=== PATIENT | male | born 1945 | race Caucasian/White ===

== ENCOUNTER 2023-09-24 09:41 | Emergency (ER) | payer MEDICARE, SELFPAY ==
[2023-09-24 09:45] VITALS: BP 139/92
[2023-09-24 10:27] LABS: % Basophils 0.4 % (0-2); % Eosinophils 0.6 % (0-6); % Immature Granulocytes 0.6 % (0-0.5); % Lymphocytes 50.6 % (20.5-51.1); % Monocytes 20.3 % (1.7-9.3); % Neutrophils 27.5 % (42.2-75.2); Absolute Lymphocytes 2.6 10^3/uL (1.2-3.4); Absolute Neutrophils 1.4 10^3/uL (1.4-6.5); Hematocrit 36.8 % (39.0-52.0); Hemoglobin 13.2 g/dL (13.0-18.0); Mean Corp Hgb Conc. 35.9 g/dL (33.0-37.0); Mean Corpuscular Hgb 35.7 pg (27.0-31.0); Mean Corpuscular Volume 99.5 fL (80.0-94.0); Mean Platelet Volume 9.8 fL (7.4-10.4); Nucleated Red Blood Cells % 0 % (-); Platelet Count 179 10^3/uL (130-400); Red Cell Dist. Width 15.4 % (11.5-14.5); White Blood Cell Count 5.1 10^3/uL (4.8-10.8)
[2023-09-24 10:38] LABS: ALT (SGPT) 21 U/L (0-50); AST (SGOT) 48 U/L (17-59); Albumin 3.8 g/dl (3.5-5.0); Alkaline Phosphatase 122 U/L (38-126); Blood Urea Nitrogen 15 mg/dl (9-20); Calcium 8.8 mg/dl (8.4-10.2); Carbon Dioxide 24 mmol/L (22-30); Chloride 106 mmol/L (98-107); Glucose 120 mg/dl (70-99); Potassium 4.8 mmol/L (3.5-5.1); Sodium 138 mmol/L (135-145); Total Bilirubin 0.9 mg/dl (0.2-1.3); Total Protein 7.5 g/dl (6.3-8.2); eGFR > 60.00
[2023-09-24 11:08] LABS: Urine Albumin Negative (Neg - Trace); Urine Bilirubin Negative (Negative); Urine Character Clear (Clear); Urine Color Yellow; Urine Glucose Negative (Negative); Urine Ketone Negative (Negative); Urine Leukocyte 2+ (Negative); Urine Nitrite Negative (Negative); Urine Occult Blood 4+ (Negative); Urine Specific Gravity 1.025 (<1.030); Urine Urobilinogen Negative (Neg - 1+)
[2023-09-24 12:03] VITALS: BMI 30.2
[2023-09-24 12:09] VITALS: BP 121/80
--- NOTE | 2023-09-24 12:12 | ED.GENMED ---
Addendum entered and electronically signed by Annalisa Rosa PA-C 09/28/23 09:04:
left message
pt's finalized culture is actually enterococcus; resistant to levaquin
may need hospitalizatino for gent or linezolid;
Addendum entered and electronically signed by Edu Tillman PA-C 09/26/23 07:28:
Urine culture shows greater than 100,000 colony-forming units of E. coli. Patient has several allergies. Will prescribe Levaquin. Spoke with patient regarding this.
Original Note:
History of Present Illness
General
Chief Complaint: Male Genito-Urinary Symptoms
Time Seen by Provider: 09/24/23 11:32
Travel History
Have you had any contact with someone who has COVID-19?: No
Do you have any symptoms of coronavirus? Fever > 100 degrees, chills, cough, shortness of breath, sore throat, loss of taste or smell, muscle aches, or headache?: No
History of Present Illness
History of Present Illness:
78-year-old male with history of A-fib on Xarelto presents to the emergency department for evaluation of weak urinary stream for the past 2 to 3 days. Upon arrival to the emergency department he feels that he can void much more effectively. He was
recent admitted to this hospital for hematuria and was diagnosed with a suspected bladder mass, is scheduled for a cystoscopy in 5 days with his urologist. Denies any dysuria or abdominal pain at this point. Hematuria has resolved
Past History
Past History
ED Past Medical History: Arrthythmia, Cancer and Hypercholesterolemia
ED Past Surgical History: Cardiac (Ablation), Cholecystectomy and Orthopedic
Social History
Tobacco: Non-smoker
Alcohol: Occasional
Drug: None
Personal:
Living: with family
Review of Systems
Review of Systems
Allergies reviewed?: Yes
All Other Systems: ROS reviewed and negative except as documented in HPI and ROS
Phy Exam
Physical Exam
Physical Exam:
GEN: Well appearing, NAD, WDWN
HEENT: Oral mucosa moist, no scleral icterus
Cardiac: Regular rate
Lung: No respiratory distress, no tachypnea
MSK: No gross deformity or injuries
Skin: Good color, no pallor or jaundice, no rashes
Neuro: AO x3, moves all extremities freely
Psych: Calm, cooperative
Course
Orders/Labs/Results
Orders:
Orders
09/24/23 10:02
CMP [Comprehensive Metabolic Panel] Urgent
Complete Blood Count/With Diff Urgent
Urinalysis Reflex To Culture Urgent
Date Specimen was Collected: 09/24/23
Time Specimen was Collected: 09:57
Urine Microscopic Reflex Cult Urgent
Urine Culture Urgent
MISAEL Source: U
Specimen Description:
Date Specimen was Collected: 09/24/23
Time Specimen was Collected: 09:57
Abnormal Lab Results
09/24/23
10:02
RBC 3.70 L 10^6/uL
(4.70-6.10)
Hct 36.8 L %
(39.0-52.0)
MCV 99.5 H fL
(80.0-94.0)
MCH 35.7 H pg
(27.0-31.0)
RDW 15.4 H %
(11.5-14.5)
Absolute Monos (auto) 1.0 H 10^3/uL
(0.1-0.6)
Immature Gran % 0.6 H %
(0-0.5)
Neutrophils % 27.5 L %
(42.2-75.2)
Monocytes % 20.3 H %
(1.7-9.3)
Glucose 120 H mg/dl
(70-99)
Ur Occult Blood Reflex 4+ A
(Negative)
Leukocyte Esterase Rfl 2+ A
(Negative)
Urine RBC 11-15 A /HPF
(0-2)
Urine WBC (Reflex) 26-30 A /HPF
(0-5)
Urine Bacteria (Reflex) Many A
(Negative)
09/24/23 10:02
09/24/23 10:02
Vital Signs
Initial and Last Documented VS:
Initial Vital Signs
Temp Pulse Resp BP Pulse Ox
98.3 F 92 18 139/92 97
09/24/23 09:45 09/24/23 09:45 09/24/23 09:45 09/24/23 09:45 09/24/23 09:45
Last Documented Vital Signs
Temp Pulse Resp BP Pulse Ox
98.3 F 80 18 121/80 94
09/24/23 09:45 09/24/23 12:09 09/24/23 12:09 09/24/23 12:09 09/24/23 12:09
MDM/Problems Addressed
MDM/Problems Addressed:
Patient voiding better than previously however still noted to have a postvoid residual of approximate 200 250 cc. Patient declined Castro catheter or straight cath at this time, he states that he is comfortable performing straight cath as needed for
the next several days until his cystoscopy. His urinalysis has large leukocytes and bacteria, he was treated for a urinary tract infection while hospitalized however his culture was negative for UTI. Given this would opt to hold off on antibiotics
at this time given the similarities of the urinalysis, this is likely on the basis of his bladder mass however if urine culture is positive would prefer to initiate antibiotics given his upcoming cystoscopy
*Critical Care Note
Total Time (30-74mins, 75-104mins- exclusive of procedures): Not Applicable
ED Attending Note
-
Portions of this chart may have been created with voice recognition software.� Occasional wrong word or��sound alike� substitutions may have occurred due to the inherent limitations of voice recognition software.
Discharge Plan
Departure
Patient Disposition: Home (Routine Discharge)
Date of Disposition: 09/24/23
Time of Disposition: 12:12
Patient with high blood pressure during this ER visit?: No
Discharge Problem:
Acute urinary retention
Instructions: Urinary Retention (DC)
Prescriptions:
New
(DME) catheter 16 Fr misc
See Rx Instructions .Route Qty: 10 0RF
Rx Instructions:
As directed
Surgilube Gel
1 ea topical DIRECTED Qty: 100 0RF
Rx Instructions:
one 5g packet with straight catheter as needed
No Action
loperamide 2 mg Capsule
2 mg PO BIDPRN PRN (Reason: diarrhea)
acetaminophen [Tylenol Extra Strength] 500 mg Tablet
1,000 mg PO DAILYPRN PRN (Reason: mild pain)
lidocaine-prilocaine 2.5-2.5 % Cream
1 applic TOPICAL .Q OTHER MONDAY
Patient Comments:
09/11/2023, applied to port during chemo infusion every other Monday.
ferrous sulfate [iron] 325 mg (65 mg iron) Tablet
325 mg PO DAILY
docusate sodium [Stool Softener] 100 mg Capsule
100 mg PO BID PRN (Reason: constipation)
cyanocobalamin (vitamin B-12) 1,000 mcg Tablet, Sublingual
1,000 mcg SUBLINGUAL DAILY
mirtazapine 15 mg Tablet
15 mg PO HS
fluticasone propionate 50 mcg/actuation [place],Suspension
2 spray INTRANASAL DAILY
Xarelto 20 mg Tablet
20 mg PO QPM
magnesium
1 tab PO DAILY
simethicone 80 mg Tablet,Chewable
80 mg PO DAILY PRN (Reason: gas)
omeprazole 20 mg Tablet,Delayed Release (Dr/Ec)
20 mg PO BID
miconazole nitrate [Miconazorb AF] 2 % Powder
1 applic topical BID Qty: 85 0RF
cefdinir 300 mg capsule
300 mg PO BID 5 Days Qty: 10 0RF
Referrals:
Baljeet Trotter MD [Active] -
Interventions
Interventions:
*Risk Screen - Suicide Last Done: 09/24/23 09:45
*General Assessment Last Done: 09/24/23 12:00
*Neglect/Abuse Screening Last Done: 09/24/23 09:45
ED- Fall Risk Assessment Last Done: 09/24/23 12:02
*ED COVID-19 Vaccine History Last Done: 09/24/23 09:45
*Nursing Disposition Last Done: 09/24/23 12:32
ED-Male Genitourinary Assessment Last Done: 09/24/23 12:01
Discharge Date and Time
Discharge Date/Time: 09/24/23 12:33
[2023-09-24 13:05] LABS: Urine Bacteria Many (Negative); Urine White Cell 26-30 /HPF (0-5)
--- NOTE | 2023-09-28 15:34 | ED.ADDNOTE ---
ED Addendum
ED Addendum
ED Addendum Note:
pt called back and he is feeling well
all symptoms resolved
i texted dr. perez and he will take care of additional treatment ada quarles is seeing him in the office tomorrow.
== END 2023-09-24 12:33 | disposition home or self-care (01) ==
LOC: EMR 09:41
PROVIDERS: EMERGENCY PHYSICIAN Emergency Medicine; FAMILY PHYSICIAN Internal Medicine
DX: R33.9 Retention of urine, unspecified (principal); E78.00 Pure hypercholesterolemia, unspecified; I48.91 Unspecified atrial fibrillation; Z79.01 Long term (current) use of anticoagulants; Z90.49 Acquired absence of other specified parts of digestive tract
CPT/HCPCS: 99283; 80053; 81003; 81015; 85025; 87077; 87086; 87186

== ENCOUNTER → 2023-10-09 08:31 | Outpatient (REF) | payer MEDICARE, SELFPAY ==
[2023-10-09 09:39] LABS: % Basophils 0.4 % (0-2); % Eosinophils 0.8 % (0-6); % Immature Granulocytes 1.6 % (0-0.5); % Monocytes 8.7 % (1.7-9.3); % Neutrophils 61.5 % (42.2-75.2); Absolute Basophils 0.1 10^3/uL (0-0.2); Absolute Eosinophils 0.1 10^3/uL (0-0.7); Absolute Immature Granulocytes 0.2 10^3/uL (0-0.05); Absolute Lymphocytes 3.5 10^3/uL (1.2-3.4); Absolute Monocytes 1.1 10^3/uL (0.1-0.6); Hematocrit 32.2 % (39.0-52.0); Mean Corp Hgb Conc. 34.2 g/dL (33.0-37.0); Mean Corpuscular Hgb 35.8 pg (27.0-31.0); Mean Corpuscular Volume 104.9 fL (80.0-94.0); Nucleated Red Blood Cells % 0.5 % (-); Red Blood Cell Count 3.07 10^6/uL (4.70-6.10); Red Cell Dist. Width 17.5 % (11.5-14.5)
[2023-10-09 09:56] LABS: ALT (SGPT) 15 U/L (0-50); AST (SGOT) 27 U/L (17-59); Albumin 3.1 g/dl (3.5-5.0); Alkaline Phosphatase 135 U/L (38-126); Blood Urea Nitrogen 21 mg/dl (9-20); Calcium 8.7 mg/dl (8.4-10.2); Carbon Dioxide 26 mmol/L (22-30); Chloride 102 mmol/L (98-107); Glucose 137 mg/dl (70-99); Potassium 4.1 mmol/L (3.5-5.1); Sodium 137 mmol/L (135-145); Total Bilirubin 0.6 mg/dl (0.2-1.3); eGFR > 60.00
[2023-10-09 10:37] LABS: Mean Platelet Volume 12.3 fL (7.4-10.4); Platelet Count 54 10^3/uL (130-400)
== END ==
LOC: HWLAB 08:31
PROVIDERS: ATTENDING PHYSICIAN Internal Medicine Hematology & Oncology; FAMILY PHYSICIAN Internal Medicine; REFERRING PHYSICIAN Specialist
DX: N39.0 Urinary tract infection, site not specified (principal); R71.8 Other abnormality of red blood cells; D69.6 Thrombocytopenia, unspecified; C18.2 Malignant neoplasm of ascending colon
CPT/HCPCS: 36415; 80053; 85025; 87086

== ENCOUNTER → 2023-10-16 08:39 | Outpatient (REF) | payer MEDICARE, SELFPAY ==
[2023-10-16 13:28] LABS: % Basophils 0.3 % (0-2); % Eosinophils 1.8 % (0-6); % Immature Granulocytes 0.5 % (0-0.5); % Lymphocytes 19.1 % (20.5-51.1); % Monocytes 8.6 % (1.7-9.3); % Neutrophils 69.7 % (42.2-75.2); Absolute Eosinophils 0.3 10^3/uL (0-0.7); Absolute Immature Granulocytes 0.1 10^3/uL (0-0.05); Absolute Lymphocytes 2.8 10^3/uL (1.2-3.4); Absolute Monocytes 1.3 10^3/uL (0.1-0.6); Absolute Neutrophils 10.2 10^3/uL (1.4-6.5); Hematocrit 34.5 % (39.0-52.0); Hemoglobin 11.6 g/dL (13.0-18.0); Mean Corp Hgb Conc. 33.6 g/dL (33.0-37.0); Mean Corpuscular Hgb 36.4 pg (27.0-31.0); Mean Corpuscular Volume 108.2 fL (80.0-94.0); Mean Platelet Volume 12.1 fL (7.4-10.4); Nucleated Red Blood Cells % 0 % (-); Platelet Count 114 10^3/uL (130-400); Red Blood Cell Count 3.19 10^6/uL (4.70-6.10); Red Cell Dist. Width 19.9 % (11.5-14.5); White Blood Cell Count 14.7 10^3/uL (4.8-10.8)
[2023-10-16 13:34] LABS: ALT (SGPT) 11 U/L (0-50); AST (SGOT) 22 U/L (17-59); Albumin 3.3 g/dl (3.5-5.0); Alkaline Phosphatase 138 U/L (38-126); Blood Urea Nitrogen 16 mg/dl (9-20); Calcium 8.9 mg/dl (8.4-10.2); Carbon Dioxide 29 mmol/L (22-30); Chloride 102 mmol/L (98-107); Glucose 108 mg/dl (70-99); Potassium 4.1 mmol/L (3.5-5.1); Sodium 138 mmol/L (135-145); Total Bilirubin 0.8 mg/dl (0.2-1.3); Total Protein 6.4 g/dl (6.3-8.2); eGFR > 60.00
== END ==
LOC: HWLAB 08:39
PROVIDERS: ATTENDING PHYSICIAN Internal Medicine Hematology & Oncology; FAMILY PHYSICIAN Internal Medicine
DX: R71.8 Other abnormality of red blood cells (principal); D69.6 Thrombocytopenia, unspecified; C18.2 Malignant neoplasm of ascending colon
CPT/HCPCS: 36415; 80053; 85025

== ENCOUNTER → 2023-10-30 08:25 | Outpatient (REF) | payer MEDICARE, SELFPAY ==
[2023-10-30 10:03] LABS: % Basophils 0.3 % (0-2); % Eosinophils 1.5 % (0-6); % Immature Granulocytes 0.6 % (0-0.5); % Lymphocytes 16.2 % (20.5-51.1); % Monocytes 7.7 % (1.7-9.3); % Neutrophils 73.7 % (42.2-75.2); Absolute Basophils 0.1 10^3/uL (0-0.2); Absolute Eosinophils 0.2 10^3/uL (0-0.7); Absolute Immature Granulocytes 0.1 10^3/uL (0-0.05); Absolute Lymphocytes 2.5 10^3/uL (1.2-3.4); Absolute Monocytes 1.2 10^3/uL (0.1-0.6); Absolute Neutrophils 11.4 10^3/uL (1.4-6.5); Hematocrit 35.3 % (39.0-52.0); Hemoglobin 11.5 g/dL (13.0-18.0); Mean Corp Hgb Conc. 32.6 g/dL (33.0-37.0); Mean Corpuscular Hgb 35.1 pg (27.0-31.0); Mean Corpuscular Volume 107.6 fL (80.0-94.0); Nucleated Red Blood Cells % 0 % (-); Platelet Count 85 10^3/uL (130-400); Red Blood Cell Count 3.28 10^6/uL (4.70-6.10); Red Cell Dist. Width 19.5 % (11.5-14.5); White Blood Cell Count 15.5 10^3/uL (4.8-10.8)
[2023-10-30 10:27] LABS: ALT (SGPT) 14 U/L (0-50); AST (SGOT) 24 U/L (17-59); Albumin 3.7 g/dl (3.5-5.0); Alkaline Phosphatase 174 U/L (38-126); Blood Urea Nitrogen 19 mg/dl (9-20); Calcium 8.5 mg/dl (8.4-10.2); Carbon Dioxide 23 mmol/L (22-30); Chloride 108 mmol/L (98-107); Glucose 107 mg/dl (70-99); Potassium 4.1 mmol/L (3.5-5.1); Sodium 137 mmol/L (135-145); Total Bilirubin 0.7 mg/dl (0.2-1.3); Total Protein 6.6 g/dl (6.3-8.2); eGFR > 60.00
== END ==
LOC: HWLAB 08:25
PROVIDERS: ATTENDING PHYSICIAN Internal Medicine Hematology & Oncology; FAMILY PHYSICIAN Internal Medicine
DX: R71.8 Other abnormality of red blood cells (principal); D69.6 Thrombocytopenia, unspecified; C18.2 Malignant neoplasm of ascending colon
CPT/HCPCS: 36415; 80053; 85025

== ENCOUNTER → 2023-11-13 08:30 | Outpatient (REF) | payer MEDICARE, SELFPAY ==
[2023-11-13 12:31] LABS: % Basophils 0.6 % (0-2); % Eosinophils 2.1 % (0-6); % Immature Granulocytes 0.8 % (0-0.5); % Lymphocytes 25.2 % (20.5-51.1); % Monocytes 8.4 % (1.7-9.3); % Neutrophils 62.9 % (42.2-75.2); Absolute Basophils 0.1 10^3/uL (0-0.2); Absolute Eosinophils 0.3 10^3/uL (0-0.7); Absolute Immature Granulocytes 0.1 10^3/uL (0-0.05); Absolute Lymphocytes 3.2 10^3/uL (1.2-3.4); Absolute Monocytes 1.1 10^3/uL (0.1-0.6); Absolute Neutrophils 7.9 10^3/uL (1.4-6.5); Hematocrit 37.2 % (39.0-52.0); Hemoglobin 11.9 g/dL (13.0-18.0); Mean Corpuscular Hgb 35.6 pg (27.0-31.0); Mean Corpuscular Volume 111.4 fL (80.0-94.0); Nucleated Red Blood Cells % 0 % (-); Red Blood Cell Count 3.34 10^6/uL (4.70-6.10); Red Cell Dist. Width 17.4 % (11.5-14.5); White Blood Cell Count 12.6 10^3/uL (4.8-10.8)
[2023-11-13 13:04] LABS: ALT (SGPT) 16 U/L (0-50); AST (SGOT) 24 U/L (17-59); Albumin 3.7 g/dl (3.5-5.0); Alkaline Phosphatase 165 U/L (38-126); Blood Urea Nitrogen 19 mg/dl (9-20); Calcium 8.8 mg/dl (8.4-10.2); Carbon Dioxide 27 mmol/L (22-30); Chloride 102 mmol/L (98-107); Glucose 104 mg/dl (70-99); Potassium 4.2 mmol/L (3.5-5.1); Sodium 138 mmol/L (135-145); Total Bilirubin 0.4 mg/dl (0.2-1.3); Total Protein 6.6 g/dl (6.3-8.2); eGFR > 60.00
[2023-11-13 13:34] LABS: Mean Platelet Volume 11.1 fL (7.4-10.4); Platelet Count 96 10^3/uL (130-400)
== END ==
LOC: HWLAB 08:30
PROVIDERS: ATTENDING PHYSICIAN Internal Medicine Hematology & Oncology; FAMILY PHYSICIAN Internal Medicine
DX: R71.8 Other abnormality of red blood cells (principal); D69.6 Thrombocytopenia, unspecified; C18.2 Malignant neoplasm of ascending colon
CPT/HCPCS: 36415; 80053; 85025

== ENCOUNTER → 2023-11-21 08:43 | Outpatient (REF) | payer MEDICARE, SELFPAY | LOC: HWRAD 08:43 | PROVIDERS: ATTENDING PHYSICIAN Internal Medicine Hematology & Oncology; FAMILY PHYSICIAN Internal Medicine | DX: R71.8 Other abnormality of red blood cells (principal); D69.6 Thrombocytopenia, unspecified; C18.2 Malignant neoplasm of ascending colon | CPT/HCPCS: 71260; 74177; Q9967 ==

== ENCOUNTER → 2023-11-27 08:40 | Outpatient (REF) | payer MEDICARE, SELFPAY ==
[2023-11-27 12:58] LABS: % Basophils 0.6 % (0-2); % Eosinophils 1.5 % (0-6); % Immature Granulocytes 1.2 % (0-0.5); % Lymphocytes 18.4 % (20.5-51.1); % Neutrophils 70.3 % (42.2-75.2); Absolute Basophils 0.1 10^3/uL (0-0.2); Absolute Eosinophils 0.2 10^3/uL (0-0.7); Absolute Immature Granulocytes 0.2 10^3/uL (0-0.05); Absolute Lymphocytes 2.5 10^3/uL (1.2-3.4); Absolute Monocytes 1.1 10^3/uL (0.1-0.6); Absolute Neutrophils 9.4 10^3/uL (1.4-6.5); Hematocrit 35.9 % (39.0-52.0); Hemoglobin 11.6 g/dL (13.0-18.0); Mean Corp Hgb Conc. 32.3 g/dL (33.0-37.0); Mean Corpuscular Hgb 35.9 pg (27.0-31.0); Mean Corpuscular Volume 111.1 fL (80.0-94.0); Mean Platelet Volume 11.1 fL (7.4-10.4); Nucleated Red Blood Cells % 0 % (-); Platelet Count 75 10^3/uL (130-400); Red Blood Cell Count 3.23 10^6/uL (4.70-6.10); Red Cell Dist. Width 16.2 % (11.5-14.5); White Blood Cell Count 13.3 10^3/uL (4.8-10.8)
[2023-11-27 13:46] LABS: ALT (SGPT) 18 U/L (0-50); AST (SGOT) 25 U/L (17-59); Albumin 3.7 g/dl (3.5-5.0); Alkaline Phosphatase 174 U/L (38-126); Blood Urea Nitrogen 16 mg/dl (9-20); Calcium 9.2 mg/dl (8.4-10.2); Carbon Dioxide 27 mmol/L (22-30); Chloride 104 mmol/L (98-107); Glucose 121 mg/dl (70-99); Potassium 4.6 mmol/L (3.5-5.1); Sodium 140 mmol/L (135-145); Total Bilirubin 0.4 mg/dl (0.2-1.3); Total Protein 6.3 g/dl (6.3-8.2); eGFR > 60.00
[2023-11-27 14:08] LABS: CEA 6.62 ng/ml
== END ==
LOC: HWLAB 08:40
PROVIDERS: ATTENDING PHYSICIAN Internal Medicine Hematology & Oncology; FAMILY PHYSICIAN Internal Medicine
DX: R71.8 Other abnormality of red blood cells (principal); D69.6 Thrombocytopenia, unspecified; C18.2 Malignant neoplasm of ascending colon
CPT/HCPCS: 36415; 80053; 82378; 85025

== ENCOUNTER → 2023-12-11 08:42 | Outpatient (REF) | payer MEDICARE, SELFPAY ==
[2023-12-11 10:14] LABS: Hematocrit 36.8 % (39.0-52.0); Hemoglobin 12.1 g/dL (13.0-18.0); Mean Corp Hgb Conc. 32.9 g/dL (33.0-37.0); Mean Corpuscular Hgb 35.5 pg (27.0-31.0); Mean Corpuscular Volume 107.9 fL (80.0-94.0); Mean Platelet Volume 12.1 fL (7.4-10.4); Platelet Count 80 10^3/uL (130-400); Red Blood Cell Count 3.41 10^6/uL (4.70-6.10); White Blood Cell Count 18.8 10^3/uL (4.8-10.8)
[2023-12-11 10:17] LABS: ALT (SGPT) 22 U/L (0-50); AST (SGOT) 32 U/L (17-59); Albumin 3.9 g/dl (3.5-5.0); Alkaline Phosphatase 195 U/L (38-126); Blood Urea Nitrogen 18 mg/dl (9-20); Calcium 9.2 mg/dl (8.4-10.2); Carbon Dioxide 25 mmol/L (22-30); Chloride 102 mmol/L (98-107); Glucose 109 mg/dl (70-99); Potassium 3.9 mmol/L (3.5-5.1); Sodium 136 mmol/L (135-145); Total Bilirubin 0.6 mg/dl (0.2-1.3); Total Protein 6.6 g/dl (6.3-8.2); eGFR > 60.00
[2023-12-11 12:29] LABS: Absolute Neutrophils -Man Diff 13.3 10^3/uL (1.4-6.5); Atypical Lymphocytes 1 %; Band Neutrophils 9 % (0-3); Lymphocytes 23 % (20-51); Metamyelocytes 1 % (-); Monocytes 4 % (2-9); Normal RBC Morphology Yes; Platelets Checked Yes; Segmented Neutrophils 62 % (42-75)
[2023-12-11 12:30] LABS: Total Cells Counted 100
== END ==
LOC: HWLAB 08:42
PROVIDERS: ATTENDING PHYSICIAN Internal Medicine Hematology & Oncology; FAMILY PHYSICIAN Internal Medicine
DX: R71.8 Other abnormality of red blood cells (principal); D69.6 Thrombocytopenia, unspecified; C18.2 Malignant neoplasm of ascending colon
CPT/HCPCS: 36415; 80053; 85025

== ENCOUNTER → 2023-12-21 10:08 | Outpatient (REF) | payer MEDICARE, SELFPAY | LOC: HWRAD 10:08 | PROVIDERS: ATTENDING PHYSICIAN Internal Medicine Geriatric Medicine | DX: R05.3 Chronic cough (principal); C80.1 Malignant (primary) neoplasm, unspecified | CPT/HCPCS: 71046 ==

== ENCOUNTER → 2023-12-25 14:18 | Outpatient (REF) | payer MEDICARE, SELFPAY ==
[2023-12-25 15:39] LABS: % Basophils 0.3 % (0-2); % Eosinophils 1.1 % (0-6); % Immature Granulocytes 1.1 % (0-0.5); % Lymphocytes 10.2 % (20.5-51.1); % Monocytes 8.1 % (1.7-9.3); % Neutrophils 79.2 % (42.2-75.2); Absolute Basophils 0.1 10^3/uL (0-0.2); Absolute Eosinophils 0.3 10^3/uL (0-0.7); Absolute Immature Granulocytes 0.3 10^3/uL (0-0.05); Absolute Lymphocytes 2.4 10^3/uL (1.2-3.4); Absolute Monocytes 1.9 10^3/uL (0.1-0.6); Absolute Neutrophils 18.7 10^3/uL (1.4-6.5); Hemoglobin 11.9 g/dL (13.0-18.0); Mean Corp Hgb Conc. 33.1 g/dL (33.0-37.0); Mean Corpuscular Hgb 35.8 pg (27.0-31.0); Mean Corpuscular Volume 108.4 fL (80.0-94.0); Mean Platelet Volume 11.3 fL (7.4-10.4); Nucleated Red Blood Cells % 0 % (-); Platelet Count 103 10^3/uL (130-400); Red Blood Cell Count 3.32 10^6/uL (4.70-6.10); White Blood Cell Count 23.6 10^3/uL (4.8-10.8)
[2023-12-25 16:07] LABS: ALT (SGPT) 19 U/L (0-50); AST (SGOT) 31 U/L (17-59); Albumin 3.7 g/dl (3.5-5.0); Alkaline Phosphatase 189 U/L (38-126); Blood Urea Nitrogen 21 mg/dl (9-20); Carbon Dioxide 24 mmol/L (22-30); Chloride 104 mmol/L (98-107); Glucose 92 mg/dl (70-99); Potassium 4.5 mmol/L (3.5-5.1); Sodium 136 mmol/L (135-145); Total Bilirubin 0.6 mg/dl (0.2-1.3); Total Protein 7.1 g/dl (6.3-8.2); eGFR > 60.00
== END ==
LOC: REG 14:18
PROVIDERS: ATTENDING PHYSICIAN Internal Medicine Hematology & Oncology; FAMILY PHYSICIAN Internal Medicine
DX: R71.8 Other abnormality of red blood cells (principal); D69.6 Thrombocytopenia, unspecified; C18.2 Malignant neoplasm of ascending colon
CPT/HCPCS: 36415; 80053; 85025

== ENCOUNTER 2023-12-28 20:12 | Inpatient (IN) | payer MEDICARE, SELFPAY ==
[2023-12-28] VITALS (12 sets, daily range): BP systolic 107–149; BP diastolic 79–95; BMI 29.2; BMI 29.3
[2023-12-28 13:11] LABS: % Basophils 0.3 % (0-2); % Eosinophils 0.6 % (0-6); % Immature Granulocytes 1.3 % (0-0.5); % Lymphocytes 6.3 % (20.5-51.1); % Monocytes 4.8 % (1.7-9.3); % Neutrophils 86.7 % (42.2-75.2); Absolute Basophils 0.1 10^3/uL (0-0.2); Absolute Eosinophils 0.1 10^3/uL (0-0.7); Absolute Immature Granulocytes 0.3 10^3/uL (0-0.05); Absolute Lymphocytes 1.5 10^3/uL (1.2-3.4); Absolute Monocytes 1.1 10^3/uL (0.1-0.6); Hematocrit 33.1 % (39.0-52.0); Hemoglobin 11.4 g/dL (13.0-18.0); Mean Corp Hgb Conc. 34.4 g/dL (33.0-37.0); Mean Corpuscular Hgb 36.8 pg (27.0-31.0); Mean Corpuscular Volume 106.8 fL (80.0-94.0); Nucleated Red Blood Cells % 0 % (-); Platelet Count 126 10^3/uL (130-400); Red Cell Dist. Width 15.2 % (11.5-14.5); White Blood Cell Count 23.1 10^3/uL (4.8-10.8)
[2023-12-28 13:19] LABS: ALT (SGPT) 20 U/L (0-50); AST (SGOT) 33 U/L (17-59); Albumin 3.4 g/dl (3.5-5.0); Alkaline Phosphatase 159 U/L (38-126); Blood Urea Nitrogen 25 mg/dl (9-20); Calcium 8.6 mg/dl (8.4-10.2); Carbon Dioxide 23 mmol/L (22-30); Chloride 108 mmol/L (98-107); Estimated Creatinine Clearance 63 ml/min; Glucose 107 mg/dl (70-99); Potassium 4.1 mmol/L (3.5-5.1); Sodium 136 mmol/L (135-145); Total Bilirubin 0.8 mg/dl (0.2-1.3); Total Protein 7.4 g/dl (6.3-8.2); eGFR > 60.00
[2023-12-28 14:07] LABS: COVID-19 Antigen Negative (Negative)
--- NOTE | 2023-12-28 14:14 | ED.GENMED ---
History of Present Illness
General
Chief Complaint: Breathing Problem
Source: patient and family
Exam Limitations: none
Time Seen by Provider: 12/28/23 13:19
Nursing documentation reviewed up to this point in time: agreed with
Travel History
Have you had any contact with someone who has COVID-19?: No
Do you have any symptoms of coronavirus? Fever > 100 degrees, chills, cough, shortness of breath, sore throat, loss of taste or smell, muscle aches, or headache?: No
History of Present Illness
History of Present Illness:
Patient currently receiving chemotherapy, presents to ED secondary to persistent cough with worsening shortness of breath over the past 2 weeks. Denies fever or chills. Patient reports decreased appetite. Denies nausea, vomiting, or diarrhea.
Denies chest pain. Patient received chest x-ray 1 week ago, as ordered by his primary care physician which revealed interstitial pneumonitis. After speaking with his oncologist, patient had been on steroids for the past 2 days, without improvement
symptoms. In addition, patient also has completed 2 treatments of antibiotics for UTI, i.e. Macrobid/Bactrim. Denies recent travel or surgery. Denies leg pain or swelling. Denies back pain. Denies sick contact. Of note, patient is on Xarelto
for chronic atrial fibrillation.
Past History
Past History
ED Past Medical History: Arrthythmia, Cancer and Hypercholesterolemia
ED Past Surgical History: Cardiac (Ablation), Cholecystectomy and Orthopedic
Social History
Tobacco: Non-smoker
Alcohol: Occasional
Drug: None
Personal:
Living: with family
Review of Systems
Review of Systems
Allergies reviewed?: Yes
All Other Systems: ROS reviewed and negative except as documented in HPI and ROS
Constitutional: Reports no symptoms
EENT: Reports no symptoms
Respiratory: Reports cough and trouble breathing
Cardiac: Reports no symptoms
ABD/GI: Reports no symptoms
Musculoskeletal: Reports no symptoms
Skin: Reports no symptoms
Neurological: Reports no symptoms
Phy Exam
Physical Exam
Physical Exam:
Physical Exam
General: moderate respiratory distress, not acutely ill. afebrile
Head: nc/at. eomi
Neck: supple. no meningeal signs.
Heart: s1/s2 regular rate and rhythm, no murmur. equal radial pulses.
Lungs: moderate respiratory distress. diminished breath sounds bilaterally
Abdomen: normal bowel sounds. not tender.
Neuro: alert and oriented. no focal neurological deficits
Skin: no rash
Psychiatric: well kept. interactive and cooperative
Extremities: no edema. no calf tenderness.
Scores
Heart Failure Risk
Heart Failure Risk Score: Not Applicable
Course
Orders/Labs/Results
Orders:
Orders
12/28/23 12:54
Electrocardiogram (*1) Urgent
Reason for Study: Atrial Fibrillation
12/28/23 12:57
Complete Blood Count/With Diff Urgent
Comprehensive Metabolic Panel Urgent
12/28/23 13:42
CT Chest With Iv Contrast Urgent
Comment:
Reason For Exam: cough/sob
12/28/23 13:44
COVID-19 Antigen Urgent
Source: Nasal Swab
12/28/23 Dinner
Cholesterol Lowering
At Your Request: Full Participation
Does patient need a safe tray?: No
Cholesterol Lowering: Sodium, 2 Gram
12/28/23 16:41
Piperacillin/Tazo 3.375 Gram [Zosyn] 3.375 gram in 50 ml IV NOW
Vancomycin 1 Gram/200 ml [Vancocin] 1 gram in 200 ml IV NOW
12/28/23 16:47
Lactate Level [Lactic Acid] Urgent
Blood Culture Q30M
MISAEL Source: Blood/Venous
Specimen Description:
Blood Culture Q30M
MISAEL Source: Blood/Venous
Specimen Description:
12/28/23 18:56
Admit/Transfer Patient As Directed
Co-Sign Provider:
Level of Care: Inpatient admission
Assign to:: Telemetry
Physician / Group: kelly riddle
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
Reason for Telemetry: Arrhythmia
Date to Stop Telemetry: 12/31/23
Time to Stop Telemetry: 11:00
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
Expected length of stay greater than two midnights?: Yes
ELOS- Estimated Length of Stay in days: 3
I certify the patient meets the requirements for IP care: Yes
Code Status As Directed
Resuscitation Status: Full Code
12/28/23 20:00
Bupropion(12Hr)Sustain Release [WELLBUTRIN SR (12 hour sustained release)] 100 mg PO BID
12/28/23 20:52
0.9% Sodium Chloride 1000 ml [Nss] 1,000 ml IV 100 mls/hr
Acetaminophen [Tylenol] 650 mg PO Q4HPRN PRN
12/28/23 20:52
VTE Contraindication Routine
VTE Mechanical Device Contraindication: Medical Contraindication
Pharmocologic Contraindication: Medical Contraindication
Comment: cont xarelto
Activity As Directed
Activity Level: As Tolerated
Bladder Scan As Directed
Follow Bladder Retention/Intermittent Cath Algorithm?: Yes
PRN if no void in __ hours: 6
Frequency: Per Retention Algorithm
If Bladder Scan Result >: 400
then:: Straight cath
Straight Cath As Directed
Frequency: Per Retention Algorithm
Additional Instructions: straight cath as needed per acute urinary retention algorithm for 24 hrs
Additional Instructions: for bladder scan greater than 400 mL
Vital Signs As Directed
Frequency: Per unit guidelines
Incentive Spirometry [Rx Incentive Spirometry] [RESP] Routine
Frequency: q1h while awake
O2 Therapy [RESP] Routine
Nasal Cannula Liter Flow: 2 LPM
Titrate/Wean O2 to maintain O2 sat greater than (%): 92
Pulse Ox/spot Check [RESP] Routine
Quantity: 1
Ot Eval And Treat Routine
Pt Eval And Treat Routine
Activity Level: As Tolerated
12/28/23 21:00
Pantoprazole [Protonix] 40 mg PO BID
12/28/23 21:53
Urinalysis Reflex To Culture Routine
Date Specimen was Collected: 12/28/23
Time Specimen was Collected: 21:50
12/28/23 22:45
Respiratory Culture/Gram Stain Routine
MISAEL Source: Sputum
Specimen Description:
Date Specimen was Collected: 12/28/23
Time Specimen was Collected: 22:42
12/29/23 06:34
Complete Blood Count/With Diff IN AM
Comprehensive Metabolic Panel IN AM
12/29/23 08:00
Cyanocobalamin [Vitamin B-12] 1,000 mcg PO DAILY
Ferrous Sulfate [Feosol] 325 mg PO DAILY
Magnesium l-Lactate [Mag-Tab Sr] 84 mg PO DAILY
Prednisone [Deltasone] 40 mg PO DAILY
12/29/23 18:00
Rivaroxaban [Xarelto] 20 mg PO QPM
12/30/23 06:00
Complete Blood Count/With Diff IN AM
Comprehensive Metabolic Panel IN AM
12/31/23 06:00
Complete Blood Count/With Diff IN AM
Comprehensive Metabolic Panel IN AM
12/31/23 11:00
DC Protocol for Telemetry ONCE
01/01/24 06:00
Complete Blood Count/With Diff IN AM
Comprehensive Metabolic Panel IN AM
Abnormal Lab Results
12/28/23 12/28/23
12:57 16:47
WBC 23.1 H 10^3/uL
(4.8-10.8)
RBC 3.10 L 10^6/uL
(4.70-6.10)
Hgb 11.4 L g/dL
(13.0-18.0)
Hct 33.1 L %
(39.0-52.0)
MCV 106.8 H fL
(80.0-94.0)
MCH 36.8 H pg
(27.0-31.0)
RDW 15.2 H %
(11.5-14.5)
Plt Count 126 L D 10^3/uL
(130-400)
MPV 11.0 H fL
(7.4-10.4)
Abs Immat Gran (auto) 0.3 H 10^3/uL
(0-0.05)
Absolute Neuts (auto) 20.0 H 10^3/uL
(1.4-6.5)
Absolute Monos (auto) 1.1 H 10^3/uL
(0.1-0.6)
Immature Gran % 1.3 H %
(0-0.5)
Neutrophils % 86.7 H %
(42.2-75.2)
Lymphocytes % 6.3 L %
(20.5-51.1)
Chloride 108 H mmol/L
(98-107)
BUN 25 H mg/dl
(9-20)
Glucose 107 H mg/dl
(70-99)
Lactic Acid 2.3 H mmol/L
(0.7-2.0)
Alkaline Phosphatase 159 H U/L
(38-126)
Albumin 3.4 L g/dl
(3.5-5.0)
12/28/23 12:57
12/28/23 12:57
Vital Signs
Initial and Last Documented VS:
Initial Vital Signs
Temp Pulse Resp BP Pulse Ox
98.8 F 86 20 149/95 89
12/28/23 11:46 12/28/23 11:46 12/28/23 11:46 12/28/23 11:46 12/28/23 11:46
Last Documented Vital Signs
Temp Pulse Resp BP Pulse Ox
98.5 F 103 18 126/79 96
12/29/23 11:37 12/29/23 11:37 12/29/23 11:37 12/29/23 11:37 12/29/23 11:37
MDM/Problems Addressed
MDM/Problems Addressed:
History, exam, and CT chest consistent with bilateral pneumonia. Patient will be admitted for further evaluation and treatment.
*Critical Care Note
Total Time (30-74mins, 75-104mins- exclusive of procedures): Not Applicable
ED Attending Note
-
Portions of this chart may have been created with voice recognition software.� Occasional wrong word or��sound alike� substitutions may have occurred due to the inherent limitations of voice recognition software.
Discharge Plan
Departure
Patient Disposition: Admit
Date of Disposition: 12/28/23
Time of Disposition: 16:44
Admit to: IMU
Presentation/result/management discussed w/ accepting MD/DO: Hospitalist
Discharge Problem:
Pneumonia
Interventions
Interventions:
*Risk Screen - Suicide Last Done: 12/28/23 12:36
*General Assessment Last Done: 12/28/23 12:36
*Neglect/Abuse Screening Last Done: 12/28/23 12:36
ED- Fall Risk Assessment Last Done: 12/28/23 21:05
*ED COVID-19 Vaccine History Last Done: 12/28/23 11:46
*Nursing Disposition Last Done: 12/28/23 21:05
ED- Cardiac Assessment Last Done: 12/28/23 12:36
ED- Pulmonary Assessment Last Done: 12/28/23 12:36
Discharge Date and Time
Discharge Date/Time: 12/28/23 21:06
[2023-12-28] MEDS: VANCOCIN 200 IV ×2 (16:51→21:38)
[2023-12-28 17:41] LABS: Lactic Acid 2.3 mmol/L (0.7-2.0)
[2023-12-28] MEDS: ZOSYN 50 IV (18:02)
--- NOTE | 2023-12-28 19:15 | HPS.HSE ---
Family Physician
-
Family Physician: Julio Maldonado
Chief Complaint
-
cough, shortness of breath
History of Present Illness
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
atrial fibrillation on Xarelto, aortic regurgitation, hyperlipidemia, diabetes, abdominal aortic aneurysm, carotid atherosclerosis, generalized anxiety disorder, BPH, CKD 3, urinary retention, presenting for shortness of breath and productive cough
for the past 2 weeks. He denies any fevers or chills. He denies nausea vomiting or diarrhea. He denies chest pain. He had a chest x-ray 1 week ago which showed interstitial pneumonitis and was started on prednisone by his oncologist. He last
received chemotherapy 2 and half weeks ago.
Patient has been having intermittent blood in the urine for the past month. Been treated with multiple courses of antibiotics. He again started having cloudy urine over the past few weeks and he has been on sulfa antibiotic for 10 days however he
had not taken over the past few days.
Denies smoking or alcohol use.
Medical History
Past Medical History
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
atrial fibrillation on Xarelto, aortic regurgitation, hyperlipidemia, diabetes, abdominal aor)
Past Surgical History: Reports None
Social History
Tobacco: Non-smoker
Alcohol: None
Drug: None
Family History
Family History: Not pertinent
Allergies / Home Medications
Allergies reflects when Allergies were last updated in [email or web address].
Home Medications with original date entered in [email or web address]
Allergy/Medication List:
Allergies
Allergy/AdvReac Type Severity Reaction Status Date / Time
cephalexin [From Keflex] Allergy Rash Verified 12/28/23 11:47
meropenem Allergy elevated Verified 12/28/23 11:47
LFTs
during
07/2022
admission
Penicillins Allergy Rash Verified 12/28/23 11:47
Home Medications
cyanocobalamin (vitamin B-12) 1,000 mcg sublingual tablet 1,000 mcg sublingual DAILY Supplement 09/11/23
ferrous sulfate 325 mg (65 mg iron) tablet (iron) 325 mg PO DAILY Supplement 09/11/23
magnesium 200 mg tablet 200 mg PO DAILY Electrolyte Repletion ##0 09/11/23
rivaroxaban 20 mg tablet (Xarelto) 20 mg PO QPM Blood Clot Prevention/Tx 09/11/23
omeprazole 20 mg tablet,delayed release 20 mg PO BID Gastrointestinal Issue 09/12/23
bupropion HCl 100 mg tablet,12 hr sustained-release 100 mg PO BID 12/28/23
prednisone 10 mg tablet 40 mg PO DAILY 12/28/23
Review of Systems
-
History Source: Patient
A 12 point ROS was completed and negative except as noted: Yes
Constitutional: Reports No Symptoms
EENT: Reports No Symptoms
Respiratory: Reports See HPI
Cardiac: Reports No Symptoms
Abdomen/GI: Reports No Symptoms
: Reports No Symptoms
Musculoskeletal: Reports No Symptoms
Skin: Reports No Symptoms
Neurological: Reports No Symptoms
Endocrine: Reports No Symptoms
Hematologic/Lymphatic: Reports No Symptoms
Psych: Reports No Symptoms
Physical Exam
Vital Signs
Vital Signs
Temp Pulse Resp BP Pulse Ox
98.8 F 90 29 119/83 96
12/28/23 11:46 12/28/23 17:15 12/28/23 17:15 12/28/23 17:00 12/28/23 17:15
Physical Exam
General: Well Developed, Well Nourished and No Apparent Distress
HEENT: NormoCephalic, Moist mucous membranes and Atraumatic
Respiratory: Clear
Cardiac: S1/S2 and Regular Rhythm; No Murmur or Rub
GI: Soft, Non Tender, Non Distended and Normal Bowel Sounds; No Organomegaly
Rectal: Deferred by Provider
Musculoskeletal: No Clubbing, No Cyanosis and No Edema
Skin: No Rash
Neuro: Nonfocal/grossly intact
Laboratory Results
-
12/28/23 12:57
12/28/23 12:57
Laboratory Results
Lactic Acid 2.3 mmol/L (0.7-2.0) H 12/28/23 16:47
Total Bilirubin 0.8 mg/dl (0.2-1.3) 12/28/23 12:57
AST 33 U/L (17-59) 12/28/23 12:57
ALT 20 U/L (0-50) 12/28/23 12:57
Alkaline Phosphatase 159 U/L (38-126) H 12/28/23 12:57
Data Reviewed
-
Lab Data: Labs Reviewed by me
Old Records: Reviewed
Impression/Plan
-
IMPRESSION:
PLAN:
# Sepsis (leukocytosis, tachycardia) secondary to community acquired pneumonia in the setting of chemotherapy
-CT chest shows multifocal pneumonia
-COVID-negative
-Check sputum, blood culture
-IV fluids
-Vancomycin, cefepime
-Discontinue prednisone which was started last week for pneumonitis seen on chest x-ray
Hematuria/cloudy urine secondary to urinary tract infection
-Check urinalysis, urine culture
History of BPH
History of urinary retention
-Bladder scan protocol
History of bladder stones
History of mucocele on chemotherapy
-Last received chemotherapy 2 and half weeks ago
Thrombocytopenia secondary to chemotherapy
-Platelets improved compared to baseline
History of chronic appendicitis status post laparoscopic assisted right hemicolectomy with ileocolonic anastomosis
Permanent atrial fibrillation
-Continue Xarelto
History of aortic regurgitation
Hyperlipidemia
Type 2 diabetes
Abdominal aortic aneurysm
Carotid atherosclerosis
Generalized anxiety disorder
-Continue bupropion
CKD 3
-Renal function at baseline
Full code
DVT prophylaxis�Xarelto
Regular diet
[2023-12-28] MEDS: NSS 1000 IV (21:25)
[2023-12-28 21:30] LABS: Glucose - Point of Care 175 mg/dl (70-99)
--- NOTE | 2023-12-28 21:31 | PHA.VAN.IN ---
Assessment
- Assessment
Renal Function: Appears similar to baseline
Concomitant Antimicrobials: CEFEPIME
- Previous Dosing Experience
Previous Regimen: NONE
AUC Dosing Plan
- Dosing Variables
Dosing Weight (kg): 87.3
Dosing CrCl (ml/min): 63
Vd coefficient (L/kg): 0.7
- Empiric Dosing
Initial / Loading Dose: 2GM
Maintenance Regimen: 1750MG IV Q24H
Estimated AUC (mcg*h/mL): 534
Estimated Peak (mcg*h/mL): 38.5
Estimated Trough (mcg/ml): 11.1
Estimated Half Life (H): 12.2
Pharmacokinetics Vancomycin I
- -
Patient Age: 78
Patient Sex: Male
Vancomycin Day #: 1
Indication: Pulmonary/Respiratory (SEPSIS)
Requesting Provider: DARRIAN
Pertinent Antimicrobial Allergies:
Allergies
Penicillins Allergy (Verified 12/28/23 11:47)
Rash
cephalexin [From Keflex] Allergy (Verified 12/28/23 11:47)
Rash
meropenem Allergy (Verified 12/28/23 11:47)
elevated LFTs during 07/2022 admission
patient developed elevated LFTs during 07/2022 admission. Abx stopped and levels returned to normal
Height / Weight:
Height 5 ft 8 in
Actual Weight 87.288 kg
Pertinent Past Medical History: RECURRENT UTI'S; IDDM
- Vital Signs / Lab Results
Temp Pulse Resp BP Pulse Ox
98.8 F 103 20 129/87 92
12/28/23 11:46 12/28/23 21:11 12/28/23 21:11 12/28/23 21:11 12/28/23 21:11
Lab Results - Hematology
12/28/23
12:57
WBC 23.1 H
Lab Results - Chemistry
12/28/23
12:57
BUN 25 H
Creatinine 0.9
Estimated Creat Clear 63
Albumin 3.4 L
12/28/23
16:47
Lactic Acid 2.3 H
[2023-12-28 22:15] LABS: Urine Albumin Trace (Neg - Trace); Urine Bilirubin Negative (Negative); Urine Character Slightly Cloudy (Clear); Urine Color Yellow; Urine Glucose Negative (Negative); Urine Ketone Negative (Negative); Urine Leukocyte 2+ (Negative); Urine Nitrite Positive (Negative); Urine Occult Blood 4+ (Negative); Urine Specific Gravity 1.015 (<1.030); Urine Urobilinogen Negative (Neg - 1+)
[2023-12-28 22:23] LABS: Urine Bacteria Many (Negative); Urine Red Blood Cell 16-20 /HPF (0-2); Urine White Cell >100 /HPF (0-5)
[2023-12-28] MEDS: PROTONIX 40 MG PO (22:54)
[2023-12-28] MEDS: XARELTO 20 MG PO (22:54)
[2023-12-28] MEDS: WELLBUTRIN SR (12 hour sustained release) PO (23:53)
[2023-12-29] VITALS (7 sets, daily range): BP systolic 100–126; BP diastolic 72–90; BMI 29.3
[2023-12-29] MEDS: MAXIPIME 2000 MG IV ×4 (01:00→23:19)
[2023-12-29] MEDS: STERILE WATER FOR INJECTION 10 ML IV ×4 (01:00→23:19)
--- NOTE | 2023-12-29 05:48 | PTCARENOTE ---
Pt admitted to room 2131 from ED @ 2100, aao x3 and able to make needs known, no c/o pain or discomfort offered. O2 @ 3L via NC on admission to the unit, increased to 5L this morning r/t pox 87-89% on the 3 L. Pt was bladder scanned post voidal x2
and made aware that is retaining >500cc , pt does not to be straight cath at this time, denies suprapubic pain/pressure or discomfort, will wait to be seen by his urologist before agreeing on straight cath protocol. IV fluids infusing, VSS.
[2023-12-29] MEDS: VANCOCIN 535 MG IV (06:14)
[2023-12-29 07:01] LABS: % Basophils 0.2 % (0-2); % Eosinophils 0.2 % (0-6); % Immature Granulocytes 1.3 % (0-0.5); % Lymphocytes 6.3 % (20.5-51.1); % Monocytes 4.8 % (1.7-9.3); % Neutrophils 87.2 % (42.2-75.2); Absolute Basophils 0.1 10^3/uL (0-0.2); Absolute Eosinophils 0.1 10^3/uL (0-0.7); Absolute Immature Granulocytes 0.3 10^3/uL (0-0.05); Absolute Lymphocytes 1.5 10^3/uL (1.2-3.4); Absolute Monocytes 1.2 10^3/uL (0.1-0.6); Hemoglobin 10.7 g/dL (13.0-18.0); Mean Corp Hgb Conc. 32.4 g/dL (33.0-37.0); Mean Corpuscular Hgb 35.5 pg (27.0-31.0); Mean Corpuscular Volume 109.6 fL (80.0-94.0); Mean Platelet Volume 10.7 fL (7.4-10.4); Nucleated Red Blood Cells % 0 % (-); Platelet Count 107 10^3/uL (130-400); Red Blood Cell Count 3.01 10^6/uL (4.70-6.10); White Blood Cell Count 24.1 10^3/uL (4.8-10.8)
[2023-12-29 07:23] LABS: ALT (SGPT) 19 U/L (0-50); AST (SGOT) 34 U/L (17-59); Alkaline Phosphatase 151 U/L (38-126); Blood Urea Nitrogen 25 mg/dl (9-20); Calcium 8.6 mg/dl (8.4-10.2); Carbon Dioxide 23 mmol/L (22-30); Chloride 108 mmol/L (98-107); Estimated Creatinine Clearance 63 ml/min; Glucose 106 mg/dl (70-99); Potassium 4.1 mmol/L (3.5-5.1); Sodium 137 mmol/L (135-145); Total Bilirubin 0.7 mg/dl (0.2-1.3); Total Protein 6.6 g/dl (6.3-8.2); eGFR > 60.00
--- NOTE | 2023-12-29 07:58 | W.PN.HOSP.TC ---
Addendum entered and electronically signed by Jerry Bertrand MD 12/29/23 09:50:
Them
Acute hypoxic respiratory failure, pulse ox lower 80s needed 6 L oxygen
Will monitor
Will do high flow if needed.
End
Original Note:
Today's Communication/Plan
-
.
Assessment / Plan
Assessment / Plan
Physical Exam
General: chronically ill looking, No Apparent Distress
HEENT: Normocephalic, Moist mucous membranes and Atraumatic
Respiratory: B/L rales
Cardiac: S1/S2
GI: Soft, Non Tender, Non Distended and Normal Bowel Sounds; No Organomegaly
Rectal: No rectal bleeding
Musculoskeletal: No Clubbing, No Cyanosis and No Edema
Skin: No Rash
Neuro: Nonfocal/grossly intact
Psych: no agitation
# Sepsis (leukocytosis, tachycardia) secondary to community acquired pneumonia in the setting of chemotherapy/ CT chest shows multifocal pneumonia
Still sob and cough
-COVID-negative
-Check sputum, blood culture
-IV fluids
-Vancomycin, cefepime
- cough medicine
-Discontinue prednisone which was started last week for pneumonitis seen on chest x-ray
- Appreciate pulmonary and ID help
# Hx of Hematuria/cloudy urine secondary to urinary tract infection
No hematuria
Sees Dr Trotter. Pt requested to see urologist but later met Dr Doyle an decided to hold off on formal consult since hematuria stopped.
No renal dysfunction
- f/w urine culture
#History of BPH
History of urinary retention
-Bladder scan protocol
#History of bladder stones
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
-Last received chemotherapy 2 and half weeks ago
Will need further input/ form oncology
Primary oncologist Dr Burris
Will consult oncology
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
-Platelets improved compared to baseline
#History of chronic appendicitis status post laparoscopic assisted right hemicolectomy with ileocolonic anastomosis
#Permanent atrial fibrillation
-Continue Xarelto
#History of aortic regurgitation
#Hyperlipidemia
#Type 2 diabetes
#Abdominal aortic aneurysm
Carotid atherosclerosis
#
Generalized anxiety disorder
-Continue bupropion
CKD 3
-Renal function at baseline
Full code
DVT prophylaxis�Xarelto
Regular diet
Total time spent to see the patient, examine the patient, review data and lab results, discuss treatment plan with patient, nursing staff around 55 minutes
Anticipated Discharge: > 48 hours
Subjective/Interval History
-
Date of Service: December 29, 2023
Objective Data
-
Labs:
Laboratory Results
12/29/23
06:34
WBC 24.1 H
Hgb 10.7 L
Hct 33.0 L
Plt Count 107 L
Sodium 137
Potassium 4.1
Chloride 108 H
Carbon Dioxide 23
BUN 25 H
Creatinine 0.9
Glucose 106 H
Calcium 8.6
Total Bilirubin 0.7
AST 34
ALT 19
Alkaline Phosphatase 151 H
Vital Signs:
Vital Signs
Temp Pulse Resp BP Pulse Ox
98.3 F 87 20 125/90 86
12/29/23 07:47 12/29/23 07:47 12/29/23 07:47 12/29/23 07:47 12/29/23 07:47
I&O
12/28/23 12/29/23 12/30/23
06:59 06:59 06:59
Intake Total 2215 / 2215
Output Total 450 / 450
Balance 1765 / 1765
--- NOTE | 2023-12-29 08:40 | PHA.VAN.FU ---
Vancomycin Assessment / Plan
- Assessment
Renal Function: Stable
WBC's are: Stable (23.1->24.1)
In the past 24 hrs, patient has been: Afebrile
Concomitant Antimicrobials: Cefepime
- Dosing Plan
Continue: 1750 mg q24h ( first dose 12/28 0600 after split 2g load dose on 12/28/23)
- Monitoring Plan
No level(s) ordered at this time: consider levels after 3rd maintenance dose
- Follow Up
Pharmacy will continue to follow.
Vancomycin Follow UP
- -
Patient Age: 78
Patient Sex: Male
Vancomycin Day #: 2
Indication: Pulmonary/Respiratory (SEPSIS)
Requesting Provider: DARRIAN
Pertinent Antimicrobial Allergies:
Allergies
Penicillins Allergy (Verified 12/28/23 11:47)
Rash
cephalexin [From Keflex] Allergy (Verified 12/28/23 11:47)
Rash
meropenem Allergy (Verified 12/28/23 11:47)
elevated LFTs during 07/2022 admission
patient developed elevated LFTs during 07/2022 admission. Abx stopped and levels returned to normal
Height / Weight:
Height 5 ft 8 in
Actual Weight 87.407 kg
Pertinent Past Medical History: RECURRENT UTI'S; IDDM
- Vital Signs / Lab Results
Temp Pulse Resp BP Pulse Ox
98.3 F 87 20 125/90 86
12/29/23 07:47 12/29/23 07:47 12/29/23 07:47 12/29/23 07:47 12/29/23 07:47
Lab Results - Hematology
12/28/23 12/29/23
12:57 06:34
WBC 23.1 H 24.1 H
Lab Results - Chemistry
12/28/23 12/29/23
12:57 06:34
BUN 25 H 25 H
Creatinine 0.9 0.9
Estimated Creat Clear 63 63
Albumin 3.4 L 3.0 L
12/28/23
16:47
Lactic Acid 2.3 H
Lab Results - Urine
12/28/23
21:53
Urine Nitrite (Reflex) Positive A
Leukocyte Esterase Rfl 2+ A
--- NOTE | 2023-12-29 09:11 | CON.ONC ---
Addendum entered and electronically signed by Clarita Tuttle DO 12/29/23 18:43:
I saw and examined the patient.
The RESOURCE CONSERVATIONIST or PA's note was reviewed and I agree with the note.
Comment:
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 He has been on therapy since july and overall tolerating well. He has had worsening dry cough TURPIN over past 2-3 weeks, tx held last week and started on
prednisone 40 mg daily for possible pneumonitis on imaging. He presented to ED due to no improvement in symptoms.
- apprec pulm input. He is on broad coverage for possible infectious source. he is still requiring 6 L NC.
- pneumonitis not common with 5FU or oxaliplatin and, if non-infectious inflammatory pneumonitis expected would assess for other possible culprits. low threshold to trial steroids if no improvement in abx.
- leukocytosis likely multifactorial due to G-CSF on 12/13, recent steroids and possible infectious process. afebrile.
- will continue to follow.
Original Note:
Impression
Impression
Sepsis secondary to community-acquired pneumonia
Progressive shortness of breath/TURPIN
Possible pulmonary toxicity associated with systemic antineoplastic therapy
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
Recurrent gross hematuria
Chronic anticoagulation (Xarelto)
Urinary tract infection
Hx BPH, bladder stones, urinary retention
Acute leukocytosis (GCS-F received 12/13)
Anemia, thrombocytopenia
Chronic kidney disease, stage III
Anxiety/depression
Plan
Plan
11/27/23 CEA 6.62 (outpatient)
5/ WBC 24.1, Hgb 10.7, Hct 33, PLT 107
Transfuse as needed to maintain Hgb >7.5, PLT >20 (or >50 with active bleeding)
CBC w/ diff daily, monitor for bleeding
Additional labs have been ordered and remain pending
Pulmonary consult, ID consult
Urine, blood, sputum cultures pending
Await pulm recommendations
Consider systemic steroids
Supportive care
We will follow. [facility] office updated of patient's inpatient status.
Patient History
History of Present Illness
Delmar Vernon is an 78 year old male known to Dr. Burris with [facility] for history of mucinous adenocarcinoma of the appendix/ascending colon as well as hx of thrombocytopenia. He has been receiving FOLFOX chemotherapy with last treatment 12/11 with
GCS-F support 12/13. He presented to the ER last evening, 12/27, with complaints of recurrent hematuria x4 weeks despite multiple courses of antibiotics (Macrobid/Bactrim) as well as worsening shortness of breath/TURPIN and a worsening productive cough x2
weeks. He had an outpatient CXR last week due to these acute symptoms. CXR showed interstitial pneumonitis, and he was started on daily prednisone by Dr. Burris. He was also referred to Pulmonary (Dr. Riley) for outpatient evaluation scheduled next
, January 03. Patient notes, despite steroids, he has had minimal improvement of symptoms. He states he is having trouble breathing with worsening cough. He has been admitted for further evaluation and treatment.
Past-Medical/Surgical History
Chronic appendicitis s/p lap-assisted right hemicolectomy w/ileocolonic anastomosis
Atrial fibrillation (Xarelto)
Type 2 diabetes
Chronic thrombocytopenia
Cardiac ablation
Cholecystectomy
Hyperlipidemia
Hx degenerative arthritis
BPH s/p TURP
Hx urinary retention
Hx bladder stones
Cataract removal
Interstitial lung changes
AAA
Anxiety
CKD3
Patient Medication
�Medication �Instructions �Recorded �Confirmed �Last Taken �Type
cyanocobalamin (vitamin B-12) 1,000 mcg sublingual DAILY 09/11/23 12/28/23 12/28/23 History
1,000 mcg sublingual tablet Supplement
ferrous sulfate 325 mg (65 mg 325 mg PO DAILY Supplement 09/11/23 12/28/23 12/28/23 History
iron) tablet (iron)
magnesium 200 mg tablet 200 mg PO DAILY Electrolyte 09/11/23 12/28/23 12/28/23 History
Repletion ##0
rivaroxaban 20 mg tablet (Xarelto) 20 mg PO QPM Blood Clot 09/11/23 12/28/23 12/27/23 History
Prevention/Tx
omeprazole 20 mg tablet,delayed 20 mg PO BID Gastrointestinal Issue 09/12/23 12/28/23 12/28/23 History
release
bupropion HCl 100 mg tablet,12 hr 100 mg PO BID 12/28/23 12/28/23 12/28/23 History
sustained-release
prednisone 10 mg tablet 40 mg PO DAILY 12/28/23 12/28/23 12/28/23 History
Active Medications
Generic Name Dose Route Start Last Admin
Trade Name Freq PRN Reason Stop Dose Admin
Acetaminophen 650 mg 12/28/23 20:52
Acetaminophen 325 Mg Tablet PO 01/25/24 20:51
Q4HPRN PRN
mild pain/HOWELL/temp> 100.4F
Bupropion HCl 100 mg 12/28/23 20:00 12/28/23 23:53
Bupropion (12hr) Sustained Release 100 Mg Tablet PO 01/25/24 19:59 Not Given
BID ANGELINA
Cefepime HCl 2,000 mg 12/29/23 00:00 12/29/23 01:00
Cefepime Hcl 2,000 Mg/12.5 Ml Vial IV 2,000 mg
Q8H ANGELINA Administration
Cyanocobalamin 1,000 mcg 12/29/23 08:00
Cyanocobalamin 1,000 Mcg Tablet PO 01/26/24 07:59
DAILY ANGELINA
Ferrous Sulfate 325 mg 12/29/23 08:00
Ferrous Sulfate 325 Mg Tablet PO 01/26/24 07:59
DAILY ANGELINA
Sodium Chloride 1,000 mls @ 100 mls/hr 12/28/23 20:52 12/28/23 21:25
Nss IV 1,000 mls
.Q10H ANGELINA Administration
Vancomycin HCl 1,750 mg/ 535 mls @ 267.5 mls/hr 12/29/23 06:00 12/29/23 06:14
Sodium Chloride IV 535 mls
Q24H ANGELINA Administration
Protocol
Magnesium 84 mg 12/29/23 08:00
Magnesium Lactate 84 Mg Tablet PO 01/26/24 07:59
DAILY ANGELINA
Miconazole Nitrate 0 applic 12/29/23 08:00
Miconazole Powder Bottle TOPICAL 01/26/24 07:59
BID ANGELINA
Pantoprazole Sodium 40 mg 12/28/23 21:00 12/28/23 22:54
Pantoprazole 40 Mg Delayed Release Tablet PO 01/25/24 20:59 40 mg
BID ANGELINA Administration
Rivaroxaban 20 mg 12/29/23 18:00
Rivaroxaban 20 Mg Tablet PO 01/26/24 17:59
QPM ANGELINA
Sodium Chloride 0 flush 12/28/23 21:00
Sodium Chloride 0.9% (Flush) Syringe IV 01/25/24 20:59
PER PROTOCOL ANGELINA
Sterile Water 10 ml 12/29/23 00:00 12/29/23 01:00
Sterile Water For Injection 10 Ml Vial IV 01/26/24 00:00 10 ml
Q8H ANGELINA Administration
Review of Systems
-
Unable to obtain full review of systems at this time due to: Acuity
History Source: Patient, Physician, Coordinated Provider and Records
Constitutional: Reports No Appetite, Fatigue and Weakness
EENT: Reports No Symptoms
Respiratory: Reports Cough and Trouble Breathing
Cardiac: Reports No Symptoms
GI: Reports No Symptoms
Breast: Reports N/A
: Reports Bleeding and Other (difficulty at times)
Musculoskeletal: Reports No Symptoms
Skin: Reports No Symptoms
Neuro: Reports No Symptoms
Endocrine: Reports No Symptoms
Hematologic/Lymphatic: Reports No Symptoms
Allergy / Immunology: Reports No Symptoms
Psych: Reports No Symptoms
Physical Exam
-
Patient is resting in bed. He denies pain. He notes his breathing is 'terrible' with productive cough. He states he is having trouble clearing his secretions at times. He notes dark red blood at the beginning of urinary stream. denies pain
associated with urination. denies fever/chills overnight.
General: Conversant and Appears Chronically Ill
HEENT: Negative Jaundice
Cardiology: Irregular Rate/Rhythm
Pulmonary: Other (tachypneic, 5L oxygen via nasal cannula, shallow, coarse)
GI: Normal Bowel Sounds
Musculoskeletal: Edema, Right Lower Extrem (trace) and Edema, Left Lower Extrem (trace)
Extremities: Pulses Present
Neurology: Non Focal
Skin: Warm, Dry and Other (pallor)
Psych: Calm
Labs
Lab Results
WBC 24.1 10^3/uL (4.8-10.8) H 12/29/23 06:34
RBC 3.01 10^6/uL (4.70-6.10) L 12/29/23 06:34
Hgb 10.7 g/dL (13.0-18.0) L 12/29/23 06:34
Hct 33.0 % (39.0-52.0) L 12/29/23 06:34
MCV 109.6 fL (80.0-94.0) H 12/29/23 06:34
MCH 35.5 pg (27.0-31.0) H 12/29/23 06:34
MCHC 32.4 g/dL (33.0-37.0) L 12/29/23 06:34
RDW 15.0 % (11.5-14.5) H 12/29/23 06:34
Plt Count 107 10^3/uL (130-400) L 12/29/23 06:34
MPV 10.7 fL (7.4-10.4) H 12/29/23 06:34
Abs Immat Gran (auto) 0.3 10^3/uL (0-0.05) H 12/29/23 06:34
Absolute Neuts (auto) 21.0 10^3/uL (1.4-6.5) H 12/29/23 06:34
Absolute Lymphs (auto) 1.5 10^3/uL (1.2-3.4) 12/29/23 06:34
Absolute Monos (auto) 1.2 10^3/uL (0.1-0.6) H 12/29/23 06:34
Absolute Eos (auto) 0.1 10^3/uL (0-0.7) 12/29/23 06:34
Absolute Basos (auto) 0.1 10^3/uL (0-0.2) 12/29/23 06:34
Immature Gran % 1.3 % (0-0.5) H 12/29/23 06:34
Neutrophils % 87.2 % (42.2-75.2) H 12/29/23 06:34
Lymphocytes % 6.3 % (20.5-51.1) L 12/29/23 06:34
Monocytes % 4.8 % (1.7-9.3) 12/29/23 06:34
Eosinophils % 0.2 % (0-6) 12/29/23 06:34
Basophils % 0.2 % (0-2) 12/29/23 06:34
Creatinine 0.9 mg/dL (0.7-1.3) 12/29/23 06:34
Vital Signs
Vital Signs
Temp Pulse Resp BP Pulse Ox
98.3 F 87 20 125/90 86
12/29/23 07:47 12/29/23 07:47 12/29/23 07:47 12/29/23 07:47 12/29/23 07:47
12/28/[address]: Multifocal bilateral pneumonia.Patchy and confluent regions of groundglass opacity and interstitial thickening are demonstrated bilaterally, consistent with multifocal pneumonia involving bilateral upper lobes, right lower lobe, and
right middle lobe. Mild, more localized consolidation in the lateral right upper lobe and superior segment of the right lower lobe.
[2023-12-29] MEDS: NSS 1000 IV (09:27)
[2023-12-29] MEDS: DESENEX/MITRAZOL/ZEASORB 1 APPLIC TOPICAL ×2 (09:28→20:31)
--- NOTE | 2023-12-29 09:30 | CM ---
Reviewed the chart notes and spoke with the patient at the bedside. The patient resides alone in an independent apartment at [facility]. The patient uses a rollator for short distance and uses a motorized wheelchair for long distance. The
patient reports no VN or SNF in the past. The patient's pharmacy of choice is the [facility] at [facility] which was confirmed by calling and speaking with the pharmacist. CM continues to be available to patient/family and is monitoring
medical plan for needs at discharge.
Plan: Discharge plans will depend on the patient's progress. Patient currently on supplemental O2@6L/min.
[2023-12-29] MEDS: FEOSOL 325 MG PO (09:34)
[2023-12-29] MEDS: VITAMIN B-12 1000 MCG PO (09:34)
[2023-12-29] MEDS: MAG-TAB SR 84 MG PO (09:34)
[2023-12-29] MEDS: PROTONIX 40 MG PO ×2 (09:34→20:31)
[2023-12-29] MEDS: WELLBUTRIN SR (12 hour sustained release) 100 MG PO ×2 (09:34→20:31)
--- NOTE | 2023-12-29 09:51 | CON.ID ---
Consultation
-
Date/Time Consultation Requested: 12/29/2023 06:42
Date/Time Consultation Performed: 12/29/2023 09:45
Requesting Provider: Dr. Bertrand
Performing Provider: Dr. Forrest
Reason for Consultation: Sepsis; PNA
Chief Complaint / Past History
History of Present Illness
Delmar Vernon is an 78-year-old man with a significant past medical history of mucinous adenocarcinoma on chemotherapy being evaluated at the request of Dr. Bertrand in regards to pneumonia. History is obtained from chart review, along with patient
interview.
Patient reports he has been on FOLFOX since approximately July. He notes that over the past month or so he has had recurrent hematuria. Additionally, he developed shortness of breath approximately 2 weeks ago. He reports that CXR
approximately 1 week ago showed an interstitial pattern, and he was started on prednisone. Despite steroid therapy, he has had progressive shortness of breath. He notes that he develops profound cough with any deep inspiration which then leads to
significant shortness of breath. His cough is nonproductive. He has not had any hemoptysis. During this period of time he has not had any fevers or chills. He reports no dysuria with his episodes of hematuria. He has experienced urinary
retention, though. He denies any abdominal pain.
Per history, he received G-CSF on 12/14/2023
Past History
Additional Past Medical History:
Mucinous adenocarcinoma (appendix; on Folfox since Jul 2023)
Dyslipidemia
Atrial fibrillation
CKD stage III
Hypercholesterolemia
Diabetes mellitus
BPH
Anxiety
AAA
Additional Past Surgical History:
Cardiac ablation
Cholecystectomy
TURP
Allergy History:
cephalexin [From Keflex] Allergy (Verified 12/28/23 11:47)
Rash 'many years ago'
meropenem Allergy (Verified 12/28/23 11:47)
elevated LFTs during 07/2022 admission
Penicillins Allergy (Verified 12/28/23 11:47)
Rash as a child
Medications Reviewed: Yes
Current Antibiotics:
Vancomycin (dosed per pharmacy)
Cefepime 2 g IV every 8 hours
Social History
Tobacco: Non-Smoker
Alcohol: Occasional
Drug: None
Personal:
Living: With Family
Employment: Retired
Family History
Family History: Not Pertinent
Review of Systems
Vital Signs
Temp Pulse Resp BP Pulse Ox
98.3 F 87 20 125/90 86
12/29/23 07:47 12/29/23 07:47 12/29/23 07:47 12/29/23 07:47 12/29/23 07:47
Physical Exam
Physical Exam
Constitutional: Comfortable, Chronically Ill and Non-toxic
Head: Normocephalic
Eyes: Pupils Equal, Pupils Round, No Conjunctival Hemorrhage and Sclera Anicteric
Oral: No Thrush and No Ulcers
Cardiovascular: S1/S2; Negative S3/S4 or Murmur
Pulmonary: Coarse and Other (Significant expiratory crackles bilaterally)
Gastrointestinal: Soft, Non Tender, Non Distended, Normal Bowel Sounds, No Rebound and No Guarding
Extremities: Edema (trace); Negative Cyanosis or Erythema
Skin: Warm and Dry; Negative Rash or Jaundice
Neurological: Awake and Alert
Psychological: Calm
Lab / Diagnostic Study Results
12/29/23 06:34
12/29/23 06:34
Abs Immat Gran (auto) 0.3 10^3/uL (0-0.05) H 12/29/23 06:34
Absolute Neuts (auto) 21.0 10^3/uL (1.4-6.5) H 12/29/23 06:34
Absolute Lymphs (auto) 1.5 10^3/uL (1.2-3.4) 12/29/23 06:34
Absolute Monos (auto) 1.2 10^3/uL (0.1-0.6) H 12/29/23 06:34
Absolute Basos (auto) 0.1 10^3/uL (0-0.2) 12/29/23 06:34
Immature Gran % 1.3 % (0-0.5) H 12/29/23 06:34
Neutrophils % 87.2 % (42.2-75.2) H 12/29/23 06:34
Lymphocytes % 6.3 % (20.5-51.1) L 12/29/23 06:34
Monocytes % 4.8 % (1.7-9.3) 12/29/23 06:34
Eosinophils % 0.2 % (0-6) 12/29/23 06:34
Basophils % 0.2 % (0-2) 12/29/23 06:34
Lactic Acid 2.3 mmol/L (0.7-2.0) H 12/28/23 16:47
Microbiology Results
Micro:
12/28/23 22:45 MRSA Screen - Pending
Nose
12/28/23 22:45 Respiratory Culture - Pending
Sputum Gram Stain - Pending
12/28/23 21:53 Urine Culture - Pending
Urine
12/28/23 16:47 Blood Culture - Pending
Blood/Venous
12/28/23 16:47 Blood Culture - Pending
Blood/Venous
Imaging:
12/28/2023 CT chest with IV contrast: There is patchy and confluent regions of groundglass opacity and interstitial thickening demonstrated bilaterally, consistent with multifocal pneumonia involving bilateral upper lobes, right lower lobe and right
middle lobe. Mild, more localized consolidation in the lateral right upper lobe and superior segment of the right lower lobe. No pneumothorax seen. No hilar mass or adenopathy.
12/21/2023 CXR (2 view): Mild to moderate interstitial airways disease in the right upper lobe, new compared to 11/20 exam, and consistent with interstitial pneumonia. There are also mild stable fibrotic changes of both lung bases in the left lung
apex.
11/21/2023 CT chest/abdomen/pelvis: No focal nodules or airspace opacities. There is nonspecific mild subpleural reticular opacities bilaterally, with mildly increased interstitial opacities within the lingula and both lower lobes. No pleural
effusion or pneumothorax.
Assessment / Plan
Pulmonary infiltrates
- DDx includes: CAP vs HCAP vs pneumonitis 2* chemo vs others.
Leukocytosis
-Recent administration of G-CSF
Cough/shortness of breath; progressive over 2 weeks
Generalized weakness
Pyuria (without dysuria)
Mucinous adenocarcinoma (appendix; on Folfox since Jul 2023)
Dyslipidemia
Atrial fibrillation
CKD stage III
Hypercholesterolemia
Diabetes mellitus
BPH
Anxiety
AAA
Recommendations:
Continue with empiric vancomycin and cefepime. MRSA screen is pending; if negative, discontinue further vancomycin.
Will add doxycycline for potential atypical organisms.
Await pending sputum culture. Check Legionella and pneumococcal urinary antigens
Monitor white count and temperature curve.
Given findings on radiography, patient may ultimately need bronchoscopy. Await input from Pulmonary.
[2023-12-29 10:06] LABS: Reticulocyte Count 2.2 % (0.4-2.8)
--- NOTE | 2023-12-29 10:13 | CON.PUL ---
Consultation
Consultation Request
Date/Time Consultation Requested: 12/28
Date/Time Consultation Performed: 12/28
Reason for Consultation: Pneumonia, shortness of breath, hypoxia
Medical History
-
History of Present Illness:
History obtained from the patient and reviewing outpatient and inpatient records. 78-year-old male with complex medical history, history of recurrent UTIs recently treated with antibiotics by primary physician, complex urinary tract infections in
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 Patient receives ongoing chemotherapy, last received 2 and half weeks
ago. Did not receive a week ago due to ongoing urinary tract infection issues, recently treated with Macrobid and Bactrim. Patient lives independently and alone. He denies any falls but found it difficult to do simple activities at home. Upon
arrival to [facility], afebrile, pulse 86, breathing at 20, blood pressure 149/95, 89%. White count 23.1, normal creatinine. CT chest confirmed multifocal groundglass abnormalities, worrisome for pneumonia. COVID-negative. We are asked
to comment on pulmonary process 12/29/2023
Patient with rapid shallow breathing during conversation, afraid to go into coughing spells as this then makes him short of breath. He does not have oxygen therapy at home. He denies any prior history of blood clots
.
PMH on chemotherapy: Hx of Mucocele, recurrent UTI with complex UTI in the past, BPH with urinary retention, bladder stones, thrombocytopenia, chronic appendicitis status post laparoscopic assisted right hemicolectomy with ileocolonic anastomosis,
atrial fibrillation on anticoagulation, aortic regurgitation, hyperlipidemia, diabetes, abdominal aortic aneurysm, chronic kidney disease
Past Medical History
Past Medical History: None (See above)
Past Surgical History: None (See above)
Social History
Tobacco: Non-smoker
Alcohol: None
Drug: None
Living: Alone
Employment: Not Employed
Family History
Family History: Other (Father from heart disease, mother from breast cancer. 1 son is adopted. 1 daughter adopted. 1 son is )
Allergies / Home Medications
Allergies
Allergy/AdvReac Type Severity Reaction Status Date / Time
cephalexin [From Keflex] Allergy Rash Verified 12/28/23 11:47
meropenem Allergy elevated Verified 12/28/23 11:47
LFTs
during
07/2022
admission
Penicillins Allergy Rash Verified 12/28/23 11:47
Home Medications
�Medication �Instructions �Recorded �Confirmed �Last Taken �Type
cyanocobalamin (vitamin B-12) 1,000 mcg sublingual DAILY 09/11/23 12/28/23 12/28/23 History
1,000 mcg sublingual tablet Supplement
ferrous sulfate 325 mg (65 mg 325 mg PO DAILY Supplement 09/11/23 12/28/23 12/28/23 History
iron) tablet (iron)
magnesium 200 mg tablet 200 mg PO DAILY Electrolyte 09/11/23 12/28/23 12/28/23 History
Repletion ##0
rivaroxaban 20 mg tablet (Xarelto) 20 mg PO QPM Blood Clot 09/11/23 12/28/23 12/27/23 History
Prevention/Tx
omeprazole 20 mg tablet,delayed 20 mg PO BID Gastrointestinal Issue 09/12/23 12/28/23 12/28/23 History
release
bupropion HCl 100 mg tablet,12 hr 100 mg PO BID 12/28/23 12/28/23 12/28/23 History
sustained-release
prednisone 10 mg tablet 40 mg PO DAILY 12/28/23 12/28/23 12/28/23 History
Review of Systems
-
All other systems: Negative unless noted
Vitals / Labs / Diagnostic Testing
Vital Signs
Temp Pulse Resp BP Pulse Ox
98.3 F 87 20 125/90 86
12/29/23 07:47 12/29/23 07:47 12/29/23 07:47 12/29/23 07:47 12/29/23 07:47
Lab Data
12/29/23 06:34
12/29/23 06:34
Diagnostic Testing:
Physical Exam
-
HEENT: Normocephalic, Anicteric and Other (Right anterior chest port)
Cardiovascular: S1/S2, Irregular Rhythm, Murmur (n), Rub (n), Peripheral Edema (tr) and Calf Tenderness (n)
Respiratory: Wheeze (n), Rales (n), Rhonchi (few) and Accessory Resp Muscle Use (Mild to moderate use of accessory muscles with conversation, rapid shallow breathing)
GI: Soft, Distended and Non Tender
Neurology: Awake, Alert and No Motor Deficits (Generally weak, moves all extremities)
Skin: Other (Mildly pallorous)
General: Respiratory Distress (With conversation)
Assessment
-
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
chemotherapy, now admitted for bilateral pneumonia, sepsis. We are asked to comment on pulmonary process 12/29/2023
Acute hypoxic respiratory insufficiency requiring 5 L
Bilateral pneumonia per CT chest
Mucinous adenocarcinoma of the appendix, stage IIb
Ongoing FOLFOX chemotherapy, last dose 3 weeks ago
Most recently held
Recurrent UTIs with history of complex UTI
Macrodantin and sulfa therapy as outpatient
Abnormal UA
Leukocytosis
Conditions present prior to admission
Mild interstitial changes per CT chest 11/21/2023
Atrial fibrillation on anticoagulation
Thrombocytopenia
Positive beta-2 glycoprotein/anticardiolipin antibody
Chronic back pain
Plan/recommendations
At this time, patient appears to be in respiratory distress with conversation. He states it is because he is trying to avoid triggering cough spasm which then makes him short of breath. He denies any chest pain or pleurisy
Chest exam with minimal rhonchi otherwise adequate air exchange
Patient appears to be fatigued but muscle strength adequate
Recent chemotherapy noted about 3 weeks ago, FOLFOX regimen
Of note, upon reviewing prior CT imaging in 2022, he does have what appears to be mildly progressive interstitial changes
He states he is on antibiotics frequently including Macrodantin for UTIs
Moving forward
Continue with empiric therapy for nosocomial process. Cefepime/vancomycin continues.
Agree with infectious disease evaluation given immunosuppressive state. Doxycycline has been added
Abnormal urinalysis noted. Follow cultures
Patient at risk for clinical deterioration, worsening sepsis.
At this time, pressures are adequate, mildly tachycardic
Continue with IV fluids, follow urine output
Trend lactate
It is noted that patient has underlying interstitial changes. Unclear if FOLFOX regimen may have been contributing to this, currently held.
It is also unclear how often patient has been receiving Macrodantin
Last dose 3 weeks ago
Patient remains on Xarelto therapy for atrial fibrillation
Thromboembolic process less likely. History of positive anticardiolipin antibody noted
Of note, patient was DNR during last visit
Recommend addressing DNR status
Consider transfer to IMU given risk for progressive sepsis
Reviewed with patient, primary service
Remains high risk situation
[2023-12-29 10:20] LABS: LDH 296 U/L (120-246)
[2023-12-29] MEDS: VIBRAMYCIN 100 MG PO ×2 (10:50→20:31)
[2023-12-29] MEDS: ROBITUSSIN AC 5 ML PO ×3 (10:50→21:29)
[2023-12-29 11:33] LABS: Folate > 20.0 ng/ml (2.76-20); Vitamin B12 > 1000 pg/ml (239-931)
[2023-12-29 13:41] LABS: Lactic Acid 1.9 mmol/L (0.7-2.0)
[2023-12-29] MEDS: XARELTO 20 MG PO (17:15)
[2023-12-29] MEDS: NSS IV (17:15)
--- NOTE | 2023-12-29 18:15 | PTCARENOTE ---
Addendum entered by Lynda Almanza RN 12/29/23 18:23:
RT placed on 12L Midflow sao2 93% RR20.
Original Note:
Received from LARISSA saenz on 6L NC, anxious. Once pulled over and adjusted desated to 80, also had a small coughing episode (MICA SPLITTER) required NRB mask to recover- once to 92% removed nrb and sao2 88% on 6L- RR 40- encouraged to slow pattern. RT made
aware currently here adjusted o2 needs. Lungs coarse throughout- states he cannot seem to cough anything up. PO diet ordered. Family present.
[2023-12-29] MEDS: TESSALON PERLES 100 MG PO (20:31)
--- NOTE | 2023-12-29 21:42 | PTCARENOTE ---
Pt received at beginning of shift resting in bed family at bedside. Received on 15L MF POX 87-92%. RR. 30-50's. Very diminished breath sounds. Pt appears afraid to breath in d/t coughing spells. Mariah cash ordered and given. Did eventually
receive Robitussin as ordered. However POX down to 84-85%. RT TT'd and placed pt on high flow currently at 50/100% pox 95%. RR's 31. Afib/BBB on CM rate 90-100. Anxious, drowsy at times, flat affect. AAOx3. +2 LE edema. + pedal pulses. Denies any
pain or discomfort. Has right chest port that he chooses not to have accessed. RAC INT intact. HX difficulty/retention with urinating. Urinal at bedside with flavia urine. Skin pale. Wounds as documented. Rest of assessment as documented. Call patel
remains within reach. Will continue to monitor.
[2023-12-29] MEDS: FLUSH (NSS) 2 FLUSH IV (23:19)
[2023-12-29 23:23] LABS: B.E. -1.8 mmol/L; HCO3 21.3 mmol/L (21-28); O2 Saturation % 97.2 % (94-98); PCO2 30 mmHg (35-48); PO2 83 mmHg (83-108); pH 7.46 (7.35-7.45)
--- NOTE | 2023-12-29 23:25 | PTCARENOTE ---
Feroz ordered and stat ABG obtained.
[2023-12-30] VITALS (12 sets, daily range): BP systolic 94–129; BP diastolic 70–94
[2023-12-30] MEDS: ROBITUSSIN AC 5 ML PO ×4 (02:33→23:10)
--- NOTE | 2023-12-30 06:05 | PTCARENOTE ---
Pt states this am that he feels like it is harder for him to breath. Pt currently on HF 55L/100% POX as low as 70s up to 93%. RR's 30's-40's. PCXR just taken. Maria Victoria requested from RT. Claudine BAEZ TT'd and made aware. Ordered ProBNP and am labs being
obtained now. Claudine BAEZ to see pt. ICU given heads up on pt's status. Will continue to monitor.
[2023-12-30 06:28] LABS: % Basophils 0.2 % (0-2); % Eosinophils 0.1 % (0-6); % Lymphocytes 5.2 % (20.5-51.1); % Monocytes 2.6 % (1.7-9.3); % Neutrophils 90.9 % (42.2-75.2); Absolute Basophils 0.1 10^3/uL (0-0.2); Absolute Immature Granulocytes 0.3 10^3/uL (0-0.05); Absolute Lymphocytes 1.6 10^3/uL (1.2-3.4); Absolute Monocytes 0.8 10^3/uL (0.1-0.6); Absolute Neutrophils 28.4 10^3/uL (1.4-6.5); Hematocrit 31.8 % (39.0-52.0); Hemoglobin 10.6 g/dL (13.0-18.0); Mean Corp Hgb Conc. 33.3 g/dL (33.0-37.0); Mean Corpuscular Hgb 35.6 pg (27.0-31.0); Mean Corpuscular Volume 106.7 fL (80.0-94.0); Nucleated Red Blood Cells % 0 % (-); Platelet Count 109 10^3/uL (130-400); Red Blood Cell Count 2.98 10^6/uL (4.70-6.10); Red Cell Dist. Width 15.1 % (11.5-14.5); White Blood Cell Count 31.3 10^3/uL (4.8-10.8)
--- NOTE | 2023-12-30 06:33 | W.PN.UPDATE ---
Update Note
Progress Note Update
Per nursing patient hypoxic in mid 80s on midflow 15L, switched to Highflow, Rx DuoNeb, AM CXR. Later this AM, patient c/o increased SOB. Placed on HF + NRB --->�Pulse Ox 96%
Rx�ProBNP, 1mg IV morphine x1 STAT.
--- NOTE | 2023-12-30 06:34 | W.PN.HOSP.TC ---
Addendum entered and electronically signed by Jerry Bertrand MD 12/30/23 14:05:
Addendum
Met with family and updated them
We will continue current level of care hoping for a reasonable clinical response although we might not change overall prognosis. Will do Steroid BID, Lasix BID. If this care fails, will do comfort measures.
Family and patient are in agreement
Appreciate nursing staff and consultants help
End
Original Note:
Today's Communication/Plan
-
.
Assessment / Plan
Assessment / Plan
Physical Exam
General: chronically ill looking, in Apparent Distress
HEENT: Normocephalic, non-rebreather
Respiratory: B/L rales
Cardiac: S1/S2
GI: Soft, Non Tender, Non Distended and Normal Bowel Sounds; No Organomegaly
Rectal: No rectal bleeding
Musculoskeletal: No Clubbing, No Cyanosis and No Edema
Skin: No Rash
Neuro: Nonfocal/grossly intact
Psych: no agitation
# Code status
d/w pt and witnessed by nursing staff. PT wanted DNR/DNI, confirmed with daughter
Patient reported he was aware that he might if no improvement
Added low dose morphine for respiratory distress
# Sepsis (leukocytosis, tachycardia) secondary to community acquired pneumonia in the setting of chemotherapy/ CT chest showed multifocal pneumonia
No improvement over night. Repeat chest x ray worsening infiltration. High Pro-BNP, higher WBC. No Fevers
Will give stat IV Solu Medrol 125 mg, IV Lasix. Addressed code status: pt wants to be DNI/DNR, confirmed with daughter
-COVID-negative
-Blood cultures no growth
-Stop IVF
-Vancomycin, cefepime, Doxy
- cough medicine
- Appreciate pulmonary and ID help
# Hx of Hematuria/cloudy urine secondary to urinary tract infection
Will place Castro due to retention and using Lasix.
No hematuria
Sees Dr Trotter. Pt requested to see urologist but later met Dr Doyle an decided to hold off on formal consult since hematuria stopped.
No renal dysfunction
- f/w urine culture
#History of BPH
History of urinary retention
- Place Acstro 5/4
# Hyponatremia
#History of bladder stones
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
-Last received chemotherapy 2 and half weeks ago
Primary oncologist Dr Burris
Appreciate oncology help
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
-Platelets improved compared to baseline
#History of chronic appendicitis status post laparoscopic assisted right hemicolectomy with ileocolonic anastomosis
#Permanent atrial fibrillation
-Continue Xarelto
#History of aortic regurgitation
#Hyperlipidemia
#Abdominal aortic aneurysm
Carotid atherosclerosis
Generalized anxiety disorder
-Continue bupropion
# Normal kidney function here
Full code
DVT prophylaxis�Xarelto
Regular diet
Total critical time spent to see the patient, examine the patient, review data and lab results, discuss treatment plan with patient, daughter nursing staff around 75 minutes
Anticipated Discharge: > 48 hours
Subjective/Interval History
-
Date of Service: December 30, 2023
Worsening breathing over night
Objective Data
-
Labs:
Laboratory Results
12/29/23 12/30/23
23:15 06:17
WBC Pending
Hgb Pending
Hct Pending
Plt Count Pending
HCO3 21.3
Sodium Pending
Potassium Pending
Chloride Pending
Carbon Dioxide Pending
BUN Pending
Creatinine Pending
Glucose Pending
Calcium Pending
Total Bilirubin Pending
AST Pending
ALT Pending
Alkaline Phosphatase Pending
Vital Signs:
Vital Signs
Temp Pulse Resp BP Pulse Ox
98.6 F 88 40 102/75 92
12/30/23 04:53 12/30/23 04:00 12/30/23 04:00 12/30/23 04:00 12/30/23 04:15
I&O
12/28/23 12/29/23 12/30/23
06:59 06:59 06:59
Intake Total 2215 / 2215 900 / 900
Output Total 450 / 450 1350 / 1350
Balance 1765 / 1765 -450 / -450
[2023-12-30] MEDS: MORPHINE SULFATE 1 MG IV ×6 (06:38→23:09)
[2023-12-30 06:57] LABS: NT-proBNP 1340 pg/ml
[2023-12-30 06:58] LABS: ALT (SGPT) 27 U/L (0-50); AST (SGOT) 42 U/L (17-59); Albumin 2.8 g/dl (3.5-5.0); Alkaline Phosphatase 150 U/L (38-126); Blood Urea Nitrogen 24 mg/dl (9-20); Calcium 8.2 mg/dl (8.4-10.2); Carbon Dioxide 21 mmol/L (22-30); Chloride 108 mmol/L (98-107); Estimated Creatinine Clearance 71 ml/min; Glucose 112 mg/dl (70-99); Potassium 4.4 mmol/L (3.5-5.1); Sodium 134 mmol/L (135-145); Total Bilirubin 1.2 mg/dl (0.2-1.3); Total Protein 6.6 g/dl (6.3-8.2); eGFR > 60.00
[2023-12-30] MEDS: VANCOCIN 535 MG IV (07:21)
[2023-12-30] MEDS: LASIX 40 MG IV ×2 (07:21→16:27)
[2023-12-30] MEDS: SOLU-MEDROL PF 125 MG IV (07:21)
[2023-12-30] MEDS: FLUSH (NSS) 3 FLUSH IV (07:22)
[2023-12-30] MEDS: DUONEB 3 ML INH (07:24)
[2023-12-30] MEDS: MAXIPIME 2000 MG IV ×3 (07:30→22:57)
[2023-12-30] MEDS: STERILE WATER FOR INJECTION 10 ML IV ×3 (07:31→22:57)
--- NOTE | 2023-12-30 07:41 | PTCARENOTE ---
Order entered for Morphine 1mg IV. Pt received with some relief in resp distress. Currently HF 55L/100% with 100% NRB POX 92%. RR's 41. As report given to daysokft RN Dr Bertrand on floor to assess pt. Dr Bertrand spoke with pts daughter and daughter
wants to respect pt's wishes of not wanting to be intubated. DNR orders entered. DNR bracelet placed. Orders entered for Lasix 40mg IV and Solumedrol 125mg IV. Pt received meds as ordered. Castro catheter ordered and placed. 500ml urine immediate
return and bag emptied. Duoneb treatment given. Pt currently resting comfortably. Daughter on her way in.
[2023-12-30] MEDS: DESENEX/MITRAZOL/ZEASORB TOPICAL (08:46)
[2023-12-30] MEDS: PROTONIX PO (08:46)
[2023-12-30] MEDS: WELLBUTRIN SR (12 hour sustained release) PO (08:46)
[2023-12-30] MEDS: VIBRAMYCIN PO (08:46)
[2023-12-30] MEDS: MAG-TAB SR PO (08:46)
[2023-12-30] MEDS: FEOSOL PO (08:46)
--- NOTE | 2023-12-30 08:49 | PTCARENOTE ---
Addendum entered by Bina Dan 12/30/23 15:04:
Pt resting comfortably at this time. VSS. Family remains at bedside.
Original Note:
Pt received from night clerk. Maxed on HFNC and NRB. Medicated with PRN morphine for respiratory distress. Pt refused scheduled PO medications- see MAR. Family at bedside, emotional support provided.
--- NOTE | 2023-12-30 10:27 | W.PN.ID1 ---
Date of Service
Date of Service: December 30, 2023
Today's Communication
Continue with empiric doxycycline (d2) and cefepime (d3)
MRSA screen is negative, discontinue further vancomycin.
procalcitonin in the AM
prognosis guarded
Assessment / Plan
Pulmonary infiltrates
- DDx includes: CAP vs HCAP vs pneumonitis 2* chemo vs others.
Leukocytosis
-Recent administration of G-CSF
Cough/shortness of breath; progressive over 2 weeks
Generalized weakness
Pyuria (without dysuria)
Mucinous adenocarcinoma (appendix; on Folfox since Jul 2023)
Dyslipidemia
Atrial fibrillation
CKD stage III
Hypercholesterolemia
Diabetes mellitus
BPH
Anxiety
AAA
Recommendations:
some degree of leukocytosis likely due to high dose steroids
Continue with empiric doxycycline (d2) and cefepime (d3)
MRSA screen is negative, discontinue further vancomycin.
Legionella and pneumococcal urinary antigens neg
sputum culture usual resp tony
procalcitonin in the AM
Monitor white count and temperature curve.
Given findings on radiography, patient may ultimately need bronchoscopy. Await input from Pulmonary.
Prognosis guarded
Chief Complaint
-: Pneumonia
Subjective / Review of Systems
afebrile
bp stable
on both NRB and high flow O2
increasing wbc count
cr stable
resp culture usual resp tony
mrsa screen neg
legionella and strep pneumo ags neg
Vital Signs / Physical Exam
Vital Signs
Vital Signs
Temp Pulse Resp BP Pulse Ox
98.7 F 105 35 129/87 95
12/30/23 08:37 12/30/23 07:45 12/30/23 07:45 12/30/23 07:21 12/30/23 08:25
Physical Exam
Constitutional: No Acute Distress and Chronically Ill
Cardiovascular: Regular Rate and S1/S2; Negative Murmur or Rub
Pulmonary: Clear and Symmetric; Negative Wheezes or Rales
Gastrointestinal: Soft, Non Tender, Non Distended and Normal Bowel Sounds
Skin: Warm and Dry; Negative Rash or Jaundice
Objective Data
Lab Data
Lab Results
12/30/23 06:17
12/30/23 06:17
Estimated Creat Clear 71 ml/min 12/30/23 06:17
Lactic Acid 1.9 mmol/L (0.7-2.0) 12/29/23 13:04
Total Bilirubin 1.2 mg/dl (0.2-1.3) 12/30/23 06:17
AST 42 U/L (17-59) 12/30/23 06:17
ALT 27 U/L (0-50) 12/30/23 06:17
Alkaline Phosphatase 150 U/L (38-126) H 12/30/23 06:17
Most recent labs reviewed.
Micro Results:
12/28/23 22:45 Respiratory Culture - Preliminary
Sputum Usual Respiratory Tony
Gram Stain - Preliminary
12/28/23 16:47 Blood Culture - Preliminary
Blood/Venous No Growth in 24 hours- Final report to follow
12/28/23 22:45 MRSA Screen - Final
Nose No Methicillin Resistant Staphylococcus aureus isolated.
12/28/23 16:47 Blood Culture - Preliminary
Blood/Venous No Growth in 24 hours- Final report to follow
12/28/23 21:53 Legionella Urinary Antigen - Final
Urine Negative for Legionella pneumophila Serogroup 1 antigen.
A negative result does not rule out the possiblity of
Legionella infection due to other serogroups or species of
Legionella. Clinical correlation is recommended.
Streptococcus pneumoniae Antigen (M - Final
Negative for Streptococcus pneumoniae antigen.
A negative result does not exclude infection with
Streptococcus pneumoniae. Clinical correlation is
recommended.
12/28/23 21:53 Urine Culture - Pending
Urine
Imaging:
12/28/2023 CT chest with IV contrast: There is patchy and confluent regions of groundglass opacity and interstitial thickening demonstrated bilaterally, consistent with multifocal pneumonia involving bilateral upper lobes, right lower lobe and right
middle lobe. Mild, more localized consolidation in the lateral right upper lobe and superior segment of the right lower lobe. No pneumothorax seen. No hilar mass or adenopathy.
12/21/2023 CXR (2 view): Mild to moderate interstitial airways disease in the right upper lobe, new compared to 11/20 exam, and consistent with interstitial pneumonia. There are also mild stable fibrotic changes of both lung bases in the left lung
apex.
11/21/2023 CT chest/abdomen/pelvis: No focal nodules or airspace opacities. There is nonspecific mild subpleural reticular opacities bilaterally, with mildly increased interstitial opacities within the lingula and both lower lobes. No pleural
effusion or pneumothorax.
[2023-12-30] MEDS: PROTONIX IV 40 MG IV (10:45)
[2023-12-30] MEDS: NSS (PRESERVATIVE FREE) 10 ML IV (10:46)
--- NOTE | 2023-12-30 17:08 | W.PN.PUL3 ---
Today's Communication / Plan
-
Continue antibiotics
Steroids given
Diuretics given
Continue oxygen for mentation
Prognosis is guarded
Assessment
-
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
chemotherapy, now admitted for bilateral pneumonia, sepsis. We are asked to comment on pulmonary process 12/29/2023
Acute hypoxic respiratory insufficiency requiring 5 L
Bilateral pneumonia per CT chest
Mucinous adenocarcinoma of the appendix, stage IIb
Ongoing FOLFOX chemotherapy, last dose 3 weeks ago
Most recently held
Recurrent UTIs with history of complex UTI
Macrodantin and sulfa therapy as outpatient
Abnormal UA
Leukocytosis
Conditions present prior to admission
Mild interstitial changes per CT chest 11/21/2023
Atrial fibrillation on anticoagulation
Thrombocytopenia
Positive beta-2 glycoprotein/anticardiolipin antibody
Chronic back pain
Plan/recommendations
Clinically not much improvement.
Continues to have shortness of breath with conversation and minimal effort.
Cough paroxysms.
-
Chest exam with minimal rhonchi otherwise adequate air exchange
Patient appears to be fatigued but muscle strength adequate
Recent chemotherapy noted about 3 weeks ago, FOLFOX regimen
Of note, upon reviewing prior CT imaging in 2022, he does have what appears to be mildly progressive interstitial changes
He states he is on antibiotics frequently including Macrodantin for UTIs, which has been linked to drug-induced interstitial lung disease.
-
Plan:
Continue with empiric therapy for nosocomial process. Cefepime/doxycycline-vancomycin discontinued-MRSA screening was negative.
Agree with infectious disease evaluation given immunosuppressive state.
Abnormal urinalysis noted. cultures so far negative.
-
Patient at risk for clinical deterioration, worsening sepsis.
At this time, pressures are adequate, mildly tachycardic
Continue with IV fluids, follow urine output
-
It is noted that patient has underlying interstitial changes. Unclear if FOLFOX regimen may have been contributing to this, currently held.
It is also unclear how often patient has been receiving Macrodantin
Last dose 3 weeks ago
Steroids empirically has been started as the patient clinically deteriorated.
-
proBNP also was elevated: Diuretics also started.
Patient remains on Xarelto therapy for atrial fibrillation
Thromboembolic process less likely. History of positive anticardiolipin antibody noted
-
Of note, patient was DNR during last visit
Recommend addressing DNR status
Very high risk intubation.
Discussed with primary team. Dr. Tamez has discussed with the family. If patient clinically deteriorates then proceed to comfort measures.
DNR status noted.
Subjective Data
-
Date of Service:
Date of Service: December 30, 2023
Chief Complaint: Pulmonary Follow Up (Pneumonia, hypoxemic respiratory failure.)
Subjective:
Worsening condition.
Review of Systems
GI: Abdominal Pain (n) and Nausea (n)
Neuro: Headache (n)
Objective Data
Data Reviewed
Vital Signs / I&O / Oxygen:
Vital Signs
Temp Pulse Resp BP Pulse Ox
97.9 F 93 29 105/84 95
12/30/23 11:50 12/30/23 14:00 12/30/23 14:00 12/30/23 14:00 12/30/23 15:23
Intake and Output
12/29/23 12/30/23 12/31/23
06:59 06:59 06:59
Intake Total 2215 / 2215 900 / 900
Output Total 450 / 450 1350 / 1350 2800 / 2800
Balance 1765 / 1765 -450 / -450 -2800 / -2800
SaO2 95
Nasal Cannula flow liters per 50
minute
Physical Exam
General: Respiratory Distress (mild)
HEENT: Normocephalic
Cardiovascular: S1-S2
Respiratory: Crackles
GI: Non Distended
Neurology: Awake and Alert
Labs/Micro/Reports
Lab Data
12/30/23 06:17
12/30/23 06:17
Laboratory Results
12/29/23
23:15
pH 7.46 H
pCO2 30 L
pO2 83
HCO3 21.3
O2 Delivery Level
Microbiology
12/28/23 16:47 Blood/Venous Blood Culture - Preliminary
No Growth in 48 hours- Final report to follow
12/28/23 16:47 Blood/Venous Blood Culture - Preliminary
No Growth in 48 hours- Final report to follow
12/28/23 21:53 Urine Urine Culture - Preliminary
Gram negative bacilli
12/28/23 22:45 Sputum Respiratory Culture - Preliminary
Usual Respiratory Shira
12/28/23 22:45 Sputum Gram Stain - Preliminary
12/28/23 22:45 Nose MRSA Screen - Final
No Methicillin Resistant Staphylococcus aureus isolated.
12/28/23 21:53 Urine Legionella Urinary Antigen - Final
Negative for Legionella pneumophila Serogroup 1 antigen.
A negative result does not rule out the possiblity of
Legionella infection due to other serogroups or species of
Legionella. Clinical correlation is recommended.
12/28/23 21:53 Urine Streptococcus pneumoniae Antigen (M - Final
Negative for Streptococcus pneumoniae antigen.
A negative result does not exclude infection with
Streptococcus pneumoniae. Clinical correlation is
recommended.
[2023-12-30] MEDS: XARELTO 20 MG PO (18:24)
[2023-12-30] MEDS: SOLU-MEDROL PF 60 MG IV (18:24)
[2023-12-30] MEDS: WELLBUTRIN SR (12 hour sustained release) 100 MG PO (19:10)
[2023-12-30] MEDS: VIBRAMYCIN 100 MG PO (19:11)
[2023-12-30] MEDS: DESENEX/MITRAZOL/ZEASORB 1 APPLIC TOPICAL (19:11)
--- NOTE | 2023-12-30 20:33 | W.PN.UPDATE ---
Update Note
Progress Note Update
Patient requested to add Remeron 15mg at hs to his med list as he was receiving in home. Confirmed with the pharmacist per med record/ refill history.
[2023-12-30] MEDS: FLUSH (NSS) 2 FLUSH IV ×2 (20:50→22:57)
[2023-12-30] MEDS: REMERON 15 MG PO (22:57)
[2023-12-31] VITALS (11 sets, daily range): BP systolic 89–120; BP diastolic 63–90
--- NOTE | 2023-12-31 00:30 | PTCARENOTE ---
Pt continues to desat quickly with any coughing or exertion. Remains maxed out on HF and NRM. Duoneb given. Current POX 95%. Son at bedside. Will continue to monitor.
[2023-12-31] MEDS: XOPENEX 0.63 MG INHALANT SOLUTION 0.630000000000000004 MG INH ×2 (00:39→19:11)
[2023-12-31] MEDS: MORPHINE SULFATE 1 MG IV ×5 (02:15→23:14)
[2023-12-31] MEDS: FLUSH (NSS) 2 FLUSH IV ×2 (02:16→05:17)
[2023-12-31 05:00] LABS: % Basophils 0.3 % (0-2); % Immature Granulocytes 1.4 % (0-0.5); % Lymphocytes 2.2 % (20.5-51.1); % Monocytes 2.2 % (1.7-9.3); % Neutrophils 93.9 % (42.2-75.2); Absolute Basophils 0.1 10^3/uL (0-0.2); Absolute Immature Granulocytes 0.5 10^3/uL (0-0.05); Absolute Lymphocytes 0.8 10^3/uL (1.2-3.4); Absolute Monocytes 0.8 10^3/uL (0.1-0.6); Absolute Neutrophils 33.5 10^3/uL (1.4-6.5); Hematocrit 30.4 % (39.0-52.0); Hemoglobin 10.4 g/dL (13.0-18.0); Mean Corp Hgb Conc. 34.2 g/dL (33.0-37.0); Mean Corpuscular Hgb 35.7 pg (27.0-31.0); Mean Corpuscular Volume 104.5 fL (80.0-94.0); Mean Platelet Volume 10.1 fL (7.4-10.4); Nucleated Red Blood Cells % 0 % (-); Platelet Count 124 10^3/uL (130-400); Red Blood Cell Count 2.91 10^6/uL (4.70-6.10); Red Cell Dist. Width 15.1 % (11.5-14.5); White Blood Cell Count 35.7 10^3/uL (4.8-10.8)
[2023-12-31] MEDS: SOLU-MEDROL PF 60 MG IV ×2 (05:16→17:29)
[2023-12-31 05:28] LABS: ALT (SGPT) 22 U/L (0-50); AST (SGOT) 37 U/L (17-59); Albumin 2.9 g/dl (3.5-5.0); Alkaline Phosphatase 138 U/L (38-126); Blood Urea Nitrogen 44 mg/dl (9-20); Calcium 8.5 mg/dl (8.4-10.2); Carbon Dioxide 26 mmol/L (22-30); Chloride 103 mmol/L (98-107); Estimated Creatinine Clearance 52 ml/min; Glucose 160 mg/dl (70-99); Potassium 3.7 mmol/L (3.5-5.1); Sodium 137 mmol/L (135-145); Total Bilirubin 1.4 mg/dl (0.2-1.3); Total Protein 6.9 g/dl (6.3-8.2); eGFR > 60.00
[2023-12-31 05:46] LABS: Procalcitonin 0.43 ng/ml (0.0-0.25)
--- NOTE | 2023-12-31 06:33 | W.PN.HOSP.TC ---
Addendum entered and electronically signed by Jerry Bertrand MD 12/31/23 16:11:
Addendum
Stage II right buttock pressure ulcer. c/w wound care
End
Original Note:
Today's Communication/Plan
-
.
Assessment / Plan
Assessment / Plan
Physical Exam
General: chronically ill looking, in same respiratory Distress
HEENT: Normocephalic, non-rebreather
Respiratory: B/L rales
Cardiac: S1/S2
GI: Soft, Non Tender, Non Distended and Normal Bowel Sounds; No Organomegaly
Rectal: No rectal bleeding
Musculoskeletal: No Clubbing, No Cyanosis and No Edema
Skin: No Rash
Neuro: Nonfocal/grossly intact
Psych: no agitation
# Code status
Met with family 12/29.
Continue current level of care hoping for a reasonable clinical response although we might not change overall prognosis. If this care fails, will do comfort measures.
Family and patient are in agreement
Appreciate nursing staff and consultants help
# Sepsis (leukocytosis, tachycardia) secondary to community acquired pneumonia in the setting of chemotherapy/ CT chest showed multifocal pneumonia
Same distress, some stability in last 24 hours with oxygen level on current oxygen therapy
c/w Steroid 60 mg BID.
Hold for further Lasix, had good urine put and now seems euvolemic on exam with dark urine this morning, higher BUN & Creatinine.
Repeat chest x ray in am to follow with response.
-COVID-negative
-Blood cultures no growth. Sputum respiratory tony.
- s/p Vancomycin, cefepime, Doxy. Vancomycin stopped
- cough medicine
- Appreciate pulmonary and ID help
# Hx of Hematuria/cloudy urine secondary to urinary tract infection
Placed Castro 12/29 due to retention and using Lasix.
No hematuria
Sees Dr Trotter. Pt requested to see urologist but later met Dr Doyle an decided to hold off on formal consult since hematuria stopped.
No renal dysfunction
- f/w urine culture, gram negative bacilli
#History of BPH
History of urinary retention
- Place Castro 12/29
# Hyponatremia. Na at 137 today
#History of bladder stones
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
-Last received chemotherapy 2 and half weeks ago
Primary oncologist Dr Burris
Appreciate oncology help
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
-Platelets improved compared to baseline
NO active bleeding.
# Leukocytosis with ongoing illness and now steroid therapy
#History of chronic appendicitis status post laparoscopic assisted right hemicolectomy with ileocolonic anastomosis
#Permanent atrial fibrillation
-Continue Xarelto
#History of aortic regurgitation
#Hyperlipidemia
#Abdominal aortic aneurysm
Carotid atherosclerosis
Generalized anxiety disorder
-Continue bupropion
# Normal kidney function here
Full code
DVT prophylaxis�Xarelto
Regular diet
Total time spent to see the patient, examine the patient, review data and lab results, discuss treatment plan with patient, family, nursing staff around 57 minutes
Anticipated Discharge: > 48 hours
Subjective/Interval History
-
Date of Service: December 31, 2023
Some stability over night
Good urine out put after Lasix
still on high flow with non-rebreather
Objective Data
-
Labs:
Laboratory Results
12/31/23
04:39
WBC 35.7 H
Hgb 10.4 L
Hct 30.4 L
Plt Count 124 L
Sodium 137
Potassium 3.7
Chloride 103
Carbon Dioxide 26
BUN 44 H
Creatinine 1.1
Glucose 160 H
Calcium 8.5
Total Bilirubin 1.4 H
AST 37
ALT 22
Alkaline Phosphatase 138 H
Vital Signs:
Vital Signs
Temp Pulse Resp BP Pulse Ox
98.6 F 90 28 98/68 93
12/31/23 03:00 12/31/23 06:00 12/31/23 06:00 12/31/23 06:00 12/31/23 06:00
I&O
12/29/23 12/30/23 12/31/23
06:59 06:59 06:59
Intake Total 2215 / 2215 900 / 900
Output Total 450 / 450 1350 / 1350 4545 / 4545
Balance 1765 / 1765 -450 / -450 -4545 / -4545
[2023-12-31] MEDS: ROBITUSSIN AC 5 ML PO ×4 (07:15→21:36)
[2023-12-31] MEDS: VIBRAMYCIN 100 MG PO ×2 (09:12→21:21)
[2023-12-31] MEDS: MAG-TAB SR 84 MG PO (09:13)
[2023-12-31] MEDS: FEOSOL 325 MG PO (09:13)
[2023-12-31] MEDS: WELLBUTRIN SR (12 hour sustained release) 100 MG PO ×2 (09:14→21:21)
[2023-12-31] MEDS: MAXIPIME 2000 MG IV ×3 (09:14→23:10)
[2023-12-31] MEDS: PROTONIX IV 40 MG IV (09:15)
[2023-12-31] MEDS: STERILE WATER FOR INJECTION 10 ML IV ×3 (09:15→23:10)
[2023-12-31] MEDS: NSS (PRESERVATIVE FREE) 10 ML IV (09:15)
[2023-12-31] MEDS: ATIVAN 0.5 MG IV (09:25)
[2023-12-31] MEDS: NSS (PRESERVATIVE FREE) 0.25 ML IV (09:25)
--- NOTE | 2023-12-31 10:33 | W.PN.ID1 ---
Date of Service
Date of Service: December 31, 2023
Today's Communication
prognosis guarded
Assessment / Plan
Pulmonary infiltrates
- DDx includes: CAP vs HCAP vs pneumonitis 2* chemo vs others.
Leukocytosis
-Recent administration of G-CSF
Cough/shortness of breath; progressive over 2 weeks
Generalized weakness
Pyuria (without dysuria)
Mucinous adenocarcinoma (appendix; on Folfox since Jul 2023)
Dyslipidemia
Atrial fibrillation
CKD stage III
Hypercholesterolemia
Diabetes mellitus
BPH
Anxiety
AAA
Recommendations:
some degree of leukocytosis likely due to high dose steroids
Continue with empiric doxycycline (d3) and cefepime (d4)
sputum culture usual resp tony
procalcitonin minimally elevated
Monitor white count and temperature curve.
Prognosis quite guarded
Chief Complaint
-: Pneumonia and Other (Pneumonitis)
Subjective / Review of Systems
afebrile
bp mildly hypotensive
up to 50L high flow
increasing leukocytosis on steroids
L shift noted
resp culture usual resp tony
procal minimally elevated
Vital Signs / Physical Exam
Vital Signs
Vital Signs
Temp Pulse Resp BP Pulse Ox
98.6 F 90 28 98/68 95
12/31/23 03:00 12/31/23 06:00 12/31/23 06:00 12/31/23 06:00 12/31/23 07:48
Physical Exam
Constitutional: No Acute Distress and Chronically Ill
Cardiovascular: Regular Rate and S1/S2; Negative Murmur or Rub
Pulmonary: Clear and Symmetric; Negative Wheezes or Rales
Gastrointestinal: Soft, Non Tender, Non Distended and Normal Bowel Sounds
Skin: Warm and Dry; Negative Rash or Jaundice
Objective Data
Lab Data
Lab Results
12/31/23 04:39
12/31/23 04:39
Estimated Creat Clear 52 ml/min 12/31/23 04:39
Lactic Acid 1.9 mmol/L (0.7-2.0) 12/29/23 13:04
Total Bilirubin 1.4 mg/dl (0.2-1.3) H 12/31/23 04:39
AST 37 U/L (17-59) 12/31/23 04:39
ALT 22 U/L (0-50) 12/31/23 04:39
Alkaline Phosphatase 138 U/L (38-126) H 12/31/23 04:39
Most recent labs reviewed.
Micro Results:
12/28/23 21:53 Urine Culture - Preliminary
Urine Gram negative bacilli
12/28/23 16:47 Blood Culture - Preliminary
Blood/Venous No Growth in 48 hours- Final report to follow
12/28/23 16:47 Blood Culture - Preliminary
Blood/Venous No Growth in 48 hours- Final report to follow
12/28/23 22:45 Respiratory Culture - Preliminary
Sputum Usual Respiratory Tony
Gram Stain - Preliminary
12/28/23 22:45 MRSA Screen - Final
Nose No Methicillin Resistant Staphylococcus aureus isolated.
12/28/23 21:53 Legionella Urinary Antigen - Final
Urine Negative for Legionella pneumophila Serogroup 1 antigen.
A negative result does not rule out the possiblity of
Legionella infection due to other serogroups or species of
Legionella. Clinical correlation is recommended.
Streptococcus pneumoniae Antigen (M - Final
Negative for Streptococcus pneumoniae antigen.
A negative result does not exclude infection with
Streptococcus pneumoniae. Clinical correlation is
recommended.
Imaging:
12/28/2023 CT chest with IV contrast: There is patchy and confluent regions of groundglass opacity and interstitial thickening demonstrated bilaterally, consistent with multifocal pneumonia involving bilateral upper lobes, right lower lobe and right
middle lobe. Mild, more localized consolidation in the lateral right upper lobe and superior segment of the right lower lobe. No pneumothorax seen. No hilar mass or adenopathy.
12/21/2023 CXR (2 view): Mild to moderate interstitial airways disease in the right upper lobe, new compared to 11/20 exam, and consistent with interstitial pneumonia. There are also mild stable fibrotic changes of both lung bases in the left lung
apex.
11/21/2023 CT chest/abdomen/pelvis: No focal nodules or airspace opacities. There is nonspecific mild subpleural reticular opacities bilaterally, with mildly increased interstitial opacities within the lingula and both lower lobes. No pleural
effusion or pneumothorax.
[2023-12-31] MEDS: DESENEX/MITRAZOL/ZEASORB TOPICAL (10:40)
[2023-12-31 13:49] LABS: Haptoglobin 148 mg/dL (30-200)
--- NOTE | 2023-12-31 14:32 | W.PN.PUL3 ---
Today's Communication / Plan
-
Continue ox supplementation
Continue antibiotics broad-spectrum
Continue steroids
Prognosis guarded
Assessment
-
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
chemotherapy, now admitted for bilateral pneumonia, sepsis. We are asked to comment on pulmonary process 12/29/2023
Acute hypoxic respiratory insufficiency requiring 5 L
Bilateral pneumonia per CT chest
Mucinous adenocarcinoma of the appendix, stage IIb
Ongoing FOLFOX chemotherapy, last dose 3 weeks ago
Most recently held
Recurrent UTIs with history of complex UTI
Macrodantin and sulfa therapy as outpatient
Abnormal UA
Leukocytosis
Conditions present prior to admission
Mild interstitial changes per CT chest 11/21/2023
Atrial fibrillation on anticoagulation
Thrombocytopenia
Positive beta-2 glycoprotein/anticardiolipin antibody
Chronic back pain
Plan/recommendations
Clinically not much improvement.
Continues to require high oxygen flows.
Continues to have shortness of breath with conversation and minimal effort.
Cough paroxysms.
-
Chest exam with minimal rhonchi otherwise adequate air exchange
-
Recent chemotherapy noted about 3 weeks ago, FOLFOX regimen
Significant infiltrates has developed on CAT scan 12/28/2023 compared to CAT scan of the chest 11/21/2023.
He states he is on antibiotics frequently including Macrodantin for UTIs, which has been linked to drug-induced interstitial lung disease.
-
Plan:
Continue with empiric therapy for nosocomial process. Cefepime/doxycycline-vancomycin discontinued-MRSA screening was negative.
Agree with infectious disease evaluation given immunosuppressive state.
Abnormal urinalysis noted.
cultures so far negative.
-
Patient at risk for clinical deterioration, worsening sepsis.
At this time, pressures are adequate, mildly tachycardic
Continue hemodynamic monitoring.
-
It is noted that patient has underlying interstitial changes. Unclear if FOLFOX regimen may have been contributing to this, currently held.
It is also unclear how often patient has been receiving Macrodantin
Last dose 3 weeks ago
Steroids empirically has been started as the patient clinically deteriorated.
-
proBNP also was elevated: Received IV diuretics. Stopped due to hypotension.
Continue to hold for now. Blood pressure has improved.
Creatinine is normal
Patient remains on Xarelto therapy for atrial fibrillation
Thromboembolic process less likely. History of positive anticardiolipin antibody noted
-
Of note, patient was DNR during last visit
Recommend addressing DNR status
Very high risk intubation.
Discussed with primary team. Dr. Tamez has discussed with the family. If patient clinically deteriorates then proceed to comfort measures.
DNR status noted.
Subjective Data
-
Date of Service:
Date of Service: December 31, 2023
Chief Complaint: Pulmonary Follow Up (Pneumonia, hypoxemic respiratory failure.)
Subjective:
Remains on high flow oxygen
Denies hemoptysis.
Denies chest pain.
Review of Systems
General: Fever (n)
Cardiopulmonary: Dyspnea, Dyspnea on Exertion and Cough
Objective Data
Data Reviewed
Vital Signs / I&O / Oxygen:
Vital Signs
Temp Pulse Resp BP Pulse Ox
97.7 F 106 16 120/84 92
12/31/23 11:35 12/31/23 12:00 12/31/23 12:00 12/31/23 12:00 12/31/23 12:00
Intake and Output
12/30/23 12/31/23 01/01/24
06:59 06:59 06:59
Intake Total 900 / 900
Output Total 1350 / 1350 4545 / 4545
Balance -450 / -450 -4545 / -4545
SaO2 92
Nasal Cannula flow liters per 50
minute
Physical Exam
General: Respiratory Distress (mild)
HEENT: Normocephalic
Cardiovascular: S1-S2
Respiratory: Crackles
GI: Non Distended
Neurology: Awake and Alert
Labs/Micro/Reports
Lab Data
12/31/23 04:39
12/31/23 04:39
Microbiology
12/28/23 21:53 Urine Urine Culture - Final
Klebsiella pneumoniae
Enterococcus faecium - VRE
12/28/23 22:45 Sputum Respiratory Culture - Final
Usual Respiratory Shira
12/28/23 22:45 Sputum Gram Stain - Final
12/28/23 16:47 Blood/Venous Blood Culture - Preliminary
No Growth in 48 hours- Final report to follow
12/28/23 16:47 Blood/Venous Blood Culture - Preliminary
No Growth in 48 hours- Final report to follow
12/28/23 22:45 Nose MRSA Screen - Final
No Methicillin Resistant Staphylococcus aureus isolated.
12/28/23 21:53 Urine Legionella Urinary Antigen - Final
Negative for Legionella pneumophila Serogroup 1 antigen.
A negative result does not rule out the possiblity of
Legionella infection due to other serogroups or species of
Legionella. Clinical correlation is recommended.
12/28/23 21:53 Urine Streptococcus pneumoniae Antigen (M - Final
Negative for Streptococcus pneumoniae antigen.
A negative result does not exclude infection with
Streptococcus pneumoniae. Clinical correlation is
recommended.
[2023-12-31] MEDS: DULCOLAX 10 MG PO (17:29)
[2023-12-31] MEDS: XARELTO 20 MG PO (17:30)
--- NOTE | 2023-12-31 18:33 | PTCARENOTE ---
AAO, remains on max HF and NRB mask- tried few times to keep off but unable to get good readings when off- color is pink as long as high flow intact. Found him with all o2 removed blowing/picking nose- sao2 70%- recovered back on HF and NRB. PRNs
given this shift as documented including Morphine IV, Robitussin w codeine, Dulcolax, IV Ativan (added today). Lungs coarse, scattered Rhonchi- HNPC. Stage 2 on left buttock, stage 1 right buttock- foam replaced. Encouraged increased turning, and
dietary supplement drinks. Appreciative of care.
[2023-12-31] MEDS: REMERON 15 MG PO (21:20)
[2023-12-31] MEDS: DESENEX/MITRAZOL/ZEASORB 1 APPLIC TOPICAL (21:21)
[2023-12-31] MEDS: COLACE 100 MG PO (21:21)
[2023-12-31] MEDS: ATIVAN 0.25 MG IV (21:21)
[2024-01-01] VITALS (14 sets, daily range): BP systolic 88–117; BP diastolic 49–84
[2024-01-01] MEDS: MORPHINE SULFATE 1 MG IV ×4 (02:29→21:53)
[2024-01-01] MEDS: ROBITUSSIN AC 5 ML PO ×3 (02:35→16:28)
[2024-01-01] MEDS: SOLU-MEDROL PF 60 MG IV ×2 (06:08→17:16)
[2024-01-01 06:37] LABS: % Basophils 0.2 % (0-2); % Monocytes 2.4 % (1.7-9.3); % Neutrophils 93.4 % (42.2-75.2); Absolute Basophils 0.1 10^3/uL (0-0.2); Absolute Monocytes 1.2 10^3/uL (0.1-0.6); Absolute Neutrophils 45.3 10^3/uL (1.4-6.5); Mean Corp Hgb Conc. 33.3 g/dL (33.0-37.0); Mean Corpuscular Hgb 35.7 pg (27.0-31.0); Mean Corpuscular Volume 107.1 fL (80.0-94.0); Mean Platelet Volume 10.8 fL (7.4-10.4); Nucleated Red Blood Cells % 0 % (-); Platelet Count 129 10^3/uL (130-400); Red Cell Dist. Width 15.2 % (11.5-14.5)
--- NOTE | 2024-01-01 06:42 | PTCARENOTE ---
Patient's son, Jacinto, stayed overnight. Supportive of pt. Pt continues to be on HFNC plus NRB. Anytime pt has coughing fit or HFNC/NRB removed Sp02 will decrease to 70-80%. Anxious and tachypnea. Prn ativan and morphine provided; ativan still making
pt 'loopy' per the son. Pt refused to turn or reposition; needs encouragement. Afib on tele. No BM. Dark yellow output from heard. Able to swallow pills with water. Call patel within reach. RN sitting outside closest nurses station.
[2024-01-01 06:43] LABS: White Blood Cell Count 48.5 10^3/uL (4.8-10.8)
[2024-01-01 06:58] LABS: ALT (SGPT) 21 U/L (0-50); AST (SGOT) 33 U/L (17-59); Albumin 2.9 g/dl (3.5-5.0); Alkaline Phosphatase 138 U/L (38-126); Blood Urea Nitrogen 64 mg/dl (9-20); Calcium 8.3 mg/dl (8.4-10.2); Carbon Dioxide 25 mmol/L (22-30); Chloride 105 mmol/L (98-107); Estimated Creatinine Clearance 57 ml/min; Glucose 137 mg/dl (70-99); Potassium 4.2 mmol/L (3.5-5.1); Sodium 135 mmol/L (135-145); Total Bilirubin 1.4 mg/dl (0.2-1.3); eGFR > 60.00
--- NOTE | 2024-01-01 09:07 | PTCARENOTE ---
Patient received from shift superintendent caustic cresylate. Patient resting comfortably in bed. AAO, VSS. No events noted over night. No complaints of pain at this time. Currently on Highflow N/C 55L @ 100% + 100% NRB mask, tolerating well, Sats low 90's. Matthew in
place, due to be removed tomorrow (01/01) @ 0600. Family at bedside. Call patel in reach.
[2024-01-01] MEDS: VIBRAMYCIN 100 MG PO ×2 (09:42→20:35)
[2024-01-01] MEDS: STERILE WATER FOR INJECTION 10 ML IV ×3 (09:42→23:44)
[2024-01-01] MEDS: FEOSOL 325 MG PO (09:42)
[2024-01-01] MEDS: MAXIPIME 2000 MG IV ×3 (09:42→23:44)
[2024-01-01] MEDS: PROTONIX IV 40 MG IV (09:42)
[2024-01-01] MEDS: WELLBUTRIN SR (12 hour sustained release) 100 MG PO ×2 (09:42→20:35)
[2024-01-01] MEDS: NSS (PRESERVATIVE FREE) 10 ML IV (09:43)
[2024-01-01] MEDS: COLACE 100 MG PO ×2 (09:44→20:35)
[2024-01-01] MEDS: MAG-TAB SR PO (09:44)
[2024-01-01] MEDS: DESENEX/MITRAZOL/ZEASORB 1 APPLIC TOPICAL ×2 (09:44→21:52)
--- NOTE | 2024-01-01 09:55 | CM ---
Addendum entered by Emelia Rios 01/01/24 14:15:
Met with patient and son at bedside; patient is agreeable with discharging to a SNF when stable
Spoke with [facility] via phone; made her aware that they are patient's preference; but if a skilled bed is not available; patient's other preferences are [facility] and [facility].
Referrals submitted via [facility]
Original Note:
Plan: PT recommends SNF when medically stable
--- NOTE | 2024-01-01 10:54 | W.PN.PUL3 ---
Today's Communication / Plan
-
Continue ox supplementation
Continue antibiotics broad-spectrum
Continue steroids
Prognosis guarded
Assessment
-
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
chemotherapy, now admitted for bilateral pneumonia, sepsis. We are asked to comment on pulmonary process 12/29/2023
Acute hypoxic respiratory insufficiency requiring high-oxygen needs (HFNC + NRB)
Bilateral pneumonia per CT chest
Mucinous adenocarcinoma of the appendix, stage IIb
Ongoing FOLFOX chemotherapy, last dose 3 weeks ago
Most recently held
Recurrent UTIs with history of complex UTI
Macrodantin and sulfa therapy as outpatient
Abnormal UA
Leukocytosis
Conditions present prior to admission
Mild interstitial changes per CT chest 11/21/2023
Atrial fibrillation on anticoagulation
Thrombocytopenia
Positive beta-2 glycoprotein/anticardiolipin antibody
Chronic back pain
Plan/recommendations
Clinically not much improvement.
Continues to require high flow nasal cannula + NRB
Continues to have shortness of breath with conversation and minimal effort.
Cough paroxysms.
RV-panel checked and is negative
-
Recent chemotherapy noted about 3 weeks ago, FOLFOX regimen
Significant infiltrates has developed on CAT scan 12/28/2023 compared to CAT scan of the chest 11/21/2023.
He states he is on antibiotics frequently including Macrodantin for UTIs, which has been linked to drug-induced interstitial lung disease.
-
Plan:
Continue with empiric therapy for nosocomial process. Cefepime/doxycycline-vancomycin discontinued-MRSA screening was negative.
Agree with infectious disease evaluation given immunosuppressive state.
Abnormal urinalysis noted.
cultures so far negative.
-
Patient at risk for clinical deterioration, worsening sepsis.
At this time, pressures are adequate, mildly tachycardic
Continue hemodynamic monitoring.
-
It is noted that patient has possible underlying interstitial changes. Unclear if FOLFOX regimen may have been contributed to this, currently held.
It is also unclear how often patient has been receiving Macrodantin
Last dose 3 weeks ago
Steroids empirically has been started as the patient clinically deteriorated - currently on solumedrol 60mg IV q12hr
-
proBNP also was elevated: Received IV diuretics. Stopped due to hypotension.
Continue to hold for now. Blood pressure has improved albeit still with hypotension with SBP in low 90-100s
Creatinine is normal
Patient remains on Xarelto therapy for atrial fibrillation
Thromboembolic process less likely. History of positive anticardiolipin antibody noted
-
Very high risk intubation.
Discussed with primary team. Dr. Tamez has discussed with the family. If patient clinically deteriorates then proceed to comfort measures.
DNR status noted.
Patient was seen and evaluated on 01/01/2024.
Subjective Data
-
Date of Service:
Date of Service: January 01, 2024
Chief Complaint: Pulmonary Follow Up (Pneumonia, hypoxemic respiratory failure.)
Subjective:
Pt seen and evaluated this AM. and daughter at bedside. Pt on HFNC 100% + NRB. SpO2 92% with HR 100, SBP 105mmHg. Pt just got pain medication so he was a little confused. He still feels SOB. No chest pain, abd pain, N/V/f/c.
Review of Systems
General: Other (neg unless mentioned above)
Objective Data
Data Reviewed
Vital Signs / I&O / Oxygen:
Vital Signs
Temp Pulse Resp BP Pulse Ox
97.8 F 97 24 98/57 92
01/01/24 07:40 01/01/24 06:00 01/01/24 06:00 01/01/24 06:00 01/01/24 07:17
Intake and Output
05/05/24 05/06/24 05/07/24
06:59 06:59 06:59
Intake Total 480 / 480
Output Total 4545 / 4545 950 / 950
Balance -4545 / -4545 -470 / -470
SaO2 92
Nasal Cannula flow liters per 50
minute
Physical Exam
General: Respiratory Distress (mild) and Chills (negative)
HEENT: Normocephalic and Anicteric
Cardiovascular: S1-S2 and Peripheral Edema (negative)
Respiratory: Wheeze (negative), Crackles (bilaterally) and Accessory Resp Muscle Use (mild and worse with exertion)
GI: Soft, Non Distended and Non Tender
Neurology: Awake and Alert
Skin: Warm and Dry
Labs/Micro/Reports
Lab Data
01/01/24 06:14
01/01/24 06:14
Microbiology
12/28/23 16:47 Blood/Venous Blood Culture - Preliminary
No Growth in 72 hours- Final report to follow
12/28/23 16:47 Blood/Venous Blood Culture - Preliminary
No Growth in 72 hours- Final report to follow
12/28/23 21:53 Urine Urine Culture - Final
Klebsiella pneumoniae
Enterococcus faecium - VRE
12/28/23 22:45 Sputum Respiratory Culture - Final
Usual Respiratory Shira
12/28/23 22:45 Sputum Gram Stain - Final
12/28/23 22:45 Nose MRSA Screen - Final
No Methicillin Resistant Staphylococcus aureus isolated.
12/28/23 21:53 Urine Legionella Urinary Antigen - Final
Negative for Legionella pneumophila Serogroup 1 antigen.
A negative result does not rule out the possiblity of
Legionella infection due to other serogroups or species of
Legionella. Clinical correlation is recommended.
12/28/23 21:53 Urine Streptococcus pneumoniae Antigen (M - Final
Negative for Streptococcus pneumoniae antigen.
A negative result does not exclude infection with
Streptococcus pneumoniae. Clinical correlation is
recommended.
[2024-01-01] MEDS: MORPHINE SULFATE 2 MG IV ×2 (11:14→16:28)
--- NOTE | 2024-01-01 11:15 | W.PN.ID1 ---
Date of Service
Date of Service: January 01, 2024
Today's Communication
Continue antibiotics. Check viral respiratory panel.
Assessment / Plan
Pulmonary infiltrates
- DDx includes: CAP vs HCAP vs pneumonitis 2* chemo vs others.
Leukocytosis
-Recent administration of G-CSF, also on steroids
Cough/shortness of breath; progressive over 2 weeks
Generalized weakness
Pyuria (without dysuria)
Mucinous adenocarcinoma (appendix; on Folfox since Jul 2023)
Dyslipidemia
Atrial fibrillation
CKD stage III
Hypercholesterolemia
Diabetes mellitus
BPH
Anxiety
AAA
Recommendations:
some degree of leukocytosis likely due to high dose steroids
Continue with empiric doxycycline (d#4) and cefepime (d#5)
sputum culture usual resp tony
procalcitonin minimally elevated
Monitor white count and temperature curve.
Will check viral respiratory panel.
Prognosis remains guarded.
����������������������������������������������������������
Chief Complaint
-: Pneumonia and Other (Pneumonitis)
Subjective / Review of Systems
Patient seen and examined. Reports ongoing shortness of breath. Now on high flow O2
Vital Signs / Physical Exam
Vital Signs
Vital Signs
Temp Pulse Resp BP Pulse Ox
97.8 F 97 24 98/57 92
01/01/24 07:40 01/01/24 06:00 01/01/24 06:00 01/01/24 06:00 01/01/24 07:17
Physical Exam
Constitutional: Comfortable, Chronically Ill and Non-toxic
Eyes: Sclera Anicteric
Cardiovascular: S1/S2; Negative S3/S4
Pulmonary: Coarse and Other (Moderately labored.)
Gastrointestinal: Soft, Non Tender, Non Distended and Normal Bowel Sounds
Neurological: Awake and Alert
Psychological: Calm
Objective Data
Lab Data
Lab Results
01/01/24 06:14
01/01/24 06:14
Estimated Creat Clear 57 ml/min 01/01/24 06:14
Lactic Acid 1.9 mmol/L (0.7-2.0) 12/29/23 13:04
Total Bilirubin 1.4 mg/dl (0.2-1.3) H 01/01/24 06:14
AST 33 U/L (17-59) 01/01/24 06:14
ALT 21 U/L (0-50) 01/01/24 06:14
Alkaline Phosphatase 138 U/L (38-126) H 01/01/24 06:14
Most recent labs reviewed.
Micro Results:
12/28/23 16:47 Blood Culture - Preliminary
Blood/Venous No Growth in 72 hours- Final report to follow
12/28/23 16:47 Blood Culture - Preliminary
Blood/Venous No Growth in 72 hours- Final report to follow
12/28/23 21:53 Urine Culture - Final
Urine Klebsiella pneumoniae
Enterococcus faecium - VRE
12/28/23 22:45 Respiratory Culture - Final
Sputum Usual Respiratory Tony
Gram Stain - Final
12/28/23 22:45 MRSA Screen - Final
Nose No Methicillin Resistant Staphylococcus aureus isolated.
12/28/23 21:53 Legionella Urinary Antigen - Final
Urine Negative for Legionella pneumophila Serogroup 1 antigen.
A negative result does not rule out the possiblity of
Legionella infection due to other serogroups or species of
Legionella. Clinical correlation is recommended.
Streptococcus pneumoniae Antigen (M - Final
Negative for Streptococcus pneumoniae antigen.
A negative result does not exclude infection with
Streptococcus pneumoniae. Clinical correlation is
recommended.
Imaging:
12/28/2023 CT chest with IV contrast: There is patchy and confluent regions of groundglass opacity and interstitial thickening demonstrated bilaterally, consistent with multifocal pneumonia involving bilateral upper lobes, right lower lobe and right
middle lobe. Mild, more localized consolidation in the lateral right upper lobe and superior segment of the right lower lobe. No pneumothorax seen. No hilar mass or adenopathy.
12/21/2023 CXR (2 view): Mild to moderate interstitial airways disease in the right upper lobe, new compared to 11/20 exam, and consistent with interstitial pneumonia. There are also mild stable fibrotic changes of both lung bases in the left lung
apex.
11/21/2023 CT chest/abdomen/pelvis: No focal nodules or airspace opacities. There is nonspecific mild subpleural reticular opacities bilaterally, with mildly increased interstitial opacities within the lingula and both lower lobes. No pleural
effusion or pneumothorax.
--- NOTE | 2024-01-01 17:04 | W.PN.HOSP.TC ---
Today's Communication/Plan
-
Empiric antibiotics
Corticosteroids
Adjust opiates for respiratory distress
Continue oxygen supplementation
Continue supportive care
Assessment / Plan
Assessment / Plan
Impression:
Acute hypoxic respiratory failure.
Bilateral infiltrates with differential diagnosis pneumonia versus pneumonitis
Recurrent urinary tract infection complicated and catheter associated.
Acute urine retention requiring Castro placement 12/29
Conditions prior to admission:
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
-status post laparoscopic assisted right hemicolectomy with ileocolonic anastomosis
�Chemotherapy with FOLFOX
Hypercoagulable state with anticardiolipin antibody positive.
Chronic atrial fibrillation
Chronic interstitial lung disease baseline chronic atrial fibrillation on anticoagulation.
Chronic back pain
Plan
Acute hypoxic respiratory failure
Bilateral interstitial pattern infiltrate? Pneumonia community-acquired versus pneumonitis, although less likely given current chemotherapy regimen.
Blood cultures negative to date
Sepsis ruled out.
Volume overload with peripheral edema, with no prior history of CHF
No significant response to diuresis in terms of improvement of respiratory status. Lasix has been discontinued due to hypotension
COVID-negative
Continue oxygen supplementation.
Continue empiric antibiotics with cefepime and doxycycline.
Continue corticosteroids
Add and increase morphine for respiratory distress
# Hx of Hematuria/cloudy urine secondary to urinary tract infection
Placed Castro 5/4 due to retention and using Lasix.
No hematuria
Sees Dr Trotter. Pt requested to see urologist but later met Dr Doyle an decided to hold off on formal consult since hematuria stopped.
No renal dysfunction
- f/w urine culture, gram negative bacilli
#History of BPH
History of urinary retention
- Placed Castro 5/4
# Hyponatremia. Improved
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
-Platelets improved compared to baseline
NO active bleeding.
# Leukocytosis with ongoing illness and now steroid therapy
#Permanent atrial fibrillation
-Continue Xarelto
#Abdominal aortic aneurysm
Carotid atherosclerosis
Generalized anxiety disorder
-Continue bupropion
CODE STATUS DNR
Ongoing goals of care discussion with patient and family. Patient with advanced adenocarcinoma, deteriorating performance status, severe hypoxic respiratory failure. At this point comfort should be priority.
Anticipated Discharge: > 48 hours
Subjective/Interval History
-
Date of Service: January 01, 2024
Objective Data
-
Labs:
Laboratory Results
01/01/24
06:14
WBC 48.5 H*
Hgb 10.0 L
Hct 30.0 L
Plt Count 129 L
Sodium 135
Potassium 4.2
Chloride 105
Carbon Dioxide 25
BUN 64 H
Creatinine 1.0
Glucose 137 H
Calcium 8.3 L
Total Bilirubin 1.4 H
AST 33
ALT 21
Alkaline Phosphatase 138 H
Vital Signs:
Vital Signs
Temp Pulse Resp BP Pulse Ox
97.8 F 96 21 88/49 93
01/01/24 11:45 01/01/24 14:00 01/01/24 14:00 01/01/24 14:00 01/01/24 15:43
I&O
12/31/23 01/01/24 01/02/24
06:59 06:59 06:59
Intake Total 480 / 480
Output Total 4545 / 4545 950 / 950 200 / 200
Balance -4545 / -4545 -470 / -470 -200 / -200
[2024-01-01] MEDS: XARELTO 20 MG PO (17:20)
--- NOTE | 2024-01-01 18:58 | W.PN.ONC2 ---
Today's Communication / Plan
-
Continue supportive care including morphine for air hunger.
Impression
Impression
Sepsis secondary to community-acquired pneumonia
Progressive shortness of breath/TURPIN
Possible pulmonary toxicity associated with systemic antineoplastic therapy
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
Recurrent gross hematuria
Chronic anticoagulation (Xarelto)
Urinary tract infection
Hx BPH, bladder stones, urinary retention
Acute leukocytosis (GCS-F received 12/13)
Anemia, thrombocytopenia
Chronic kidney disease, stage III
Anxiety/depression
Plan
Plan
Macrodantin suspected to be cause of interstitial pneumonitis.
FOLFOX unlikely to cause interstitial pneumonitis. However, Rolvedon (G-CSF) may have contributed. Rolvedon product literature Warnings and Precautions include ARDS.
Continue supportive care.
Currently on morphine for respiratory distress.
Plan is noted to transition to comfort care if no improvement.
Subjective/Objective
Chief Complaint
Heme/Onc follow up of pneumonitis following FOLFOX + WBC growth facctor
Subjective
Admits to shortness of breath but awake and alert.
Vital Signs:
Vital Signs
Temp Pulse Resp BP Pulse Ox
98.3 F 91 30 95/76 90
01/01/24 15:40 01/01/24 18:00 01/01/24 18:00 01/01/24 18:00 01/01/24 18:23
Lab Results:
Laboratory Data
WBC 48.5 10^3/uL (4.8-10.8) H* 01/01/24 06:14
Hgb 10.0 g/dL (13.0-18.0) L 01/01/24 06:14
Plt Count 129 10^3/uL (130-400) L 01/01/24 06:14
eGFR > 60.00 01/01/24 06:14
Physical Exam
Ill-appearing, facemask + nasal cannula O2 in place
[2024-01-01] MEDS: REMERON 15 MG PO (21:52)
[2024-01-02] VITALS (8 sets, daily range): BP systolic 89–146; BP diastolic 67–91
[2024-01-02] MEDS: MORPHINE SULFATE 1 MG IV ×3 (00:43→06:44)
[2024-01-02] MEDS: ROBITUSSIN AC 5 ML PO (00:43)
[2024-01-02 03:38] LABS: % Basophils 0.3 % (0-2); % Immature Granulocytes 2.2 % (0-0.5); % Lymphocytes 1.5 % (20.5-51.1); % Monocytes 1.9 % (1.7-9.3); % Neutrophils 94.1 % (42.2-75.2); Absolute Basophils 0.1 10^3/uL (0-0.2); Absolute Immature Granulocytes 1.1 10^3/uL (0-0.05); Absolute Lymphocytes 0.7 10^3/uL (1.2-3.4); Absolute Monocytes 0.9 10^3/uL (0.1-0.6); Hematocrit 28.1 % (39.0-52.0); Hemoglobin 9.4 g/dL (13.0-18.0); Mean Corp Hgb Conc. 33.5 g/dL (33.0-37.0); Mean Corpuscular Hgb 34.9 pg (27.0-31.0); Mean Corpuscular Volume 104.5 fL (80.0-94.0); Mean Platelet Volume 10.6 fL (7.4-10.4); Nucleated Red Blood Cells % 0 % (-); Platelet Count 125 10^3/uL (130-400); Red Blood Cell Count 2.69 10^6/uL (4.70-6.10); Red Cell Dist. Width 15.5 % (11.5-14.5)
[2024-01-02 03:48] LABS: White Blood Cell Count 47.8 10^3/uL (4.8-10.8)
[2024-01-02 04:13] LABS: Blood Urea Nitrogen 70 mg/dl (9-20); Calcium 8.3 mg/dl (8.4-10.2); Carbon Dioxide 26 mmol/L (22-30); Chloride 107 mmol/L (98-107); Estimated Creatinine Clearance 57 ml/min; Glucose 149 mg/dl (70-99); Potassium 4.6 mmol/L (3.5-5.1); Sodium 136 mmol/L (135-145); eGFR > 60.00
--- NOTE | 2024-01-02 05:06 | PTCARENOTE ---
Around 1930 when this nurse was in another patients room providing care, Daughter came to visit patient and found patient had ripped off his oxygen. Daughter states patients pulsox was down in the 20s- daughter replaced HFNC + NRB- respiratory came
in to see patient and pulse ox recovered into the mid 90s. call person provider made aware and ordered mitts- daughter decided to stay at bedside overnight to prevent her father from ripping off his 02 again. Preventive Medicine Physician made aware and juan diegotter placed
in patients room.
--- NOTE | 2024-01-02 05:12 | PTCARENOTE ---
Patient unable to tolerate slight changes of position without desatting to 80 % - patient continues to be maxed out on HFNC + NRB. Prn morphine administered.
[2024-01-02] MEDS: SOLU-MEDROL PF 60 MG IV (05:23)
[2024-01-02] MEDS: PROTONIX IV 40 MG IV (08:39)
[2024-01-02] MEDS: STERILE WATER FOR INJECTION 10 ML IV (08:40)
[2024-01-02] MEDS: ATIVAN 0.25 MG IV (08:40)
[2024-01-02] MEDS: NSS (PRESERVATIVE FREE) 10 ML IV (08:40)
[2024-01-02] MEDS: MAXIPIME 2000 MG IV (08:40)
[2024-01-02] MEDS: VIBRAMYCIN 100 MG PO (08:41)
[2024-01-02] MEDS: WELLBUTRIN SR (12 hour sustained release) 100 MG PO (08:41)
[2024-01-02] MEDS: FEOSOL 325 MG PO (08:41)
[2024-01-02] MEDS: DESENEX/MITRAZOL/ZEASORB 1 APPLIC TOPICAL (08:41)
[2024-01-02] MEDS: COLACE 100 MG PO (08:41)
[2024-01-02] MEDS: MAG-TAB SR 84 MG PO (08:41)
[2024-01-02] MEDS: NSS (PRESERVATIVE FREE) 0.125 ML IV (08:41)
--- NOTE | 2024-01-02 11:05 | W.PN.PUL3 ---
Today's Communication / Plan
-
Comfort care
Jain services with Rabbi and then remove patient from O2
He will pass away within minutes to hours after O2 is removed
Continue morphine gtt + prn ativan
Given that pt being TRX to comfort care now, pulmonary service will now sign off. Please call back with any questions or concerns.
Assessment
-
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
chemotherapy, now admitted for bilateral pneumonia, sepsis. We are asked to comment on pulmonary process 12/29/2023
Acute hypoxic respiratory insufficiency requiring high-oxygen needs (HFNC + NRB)
Bilateral pneumonia per CT chest
Mucinous adenocarcinoma of the appendix, stage IIb
Ongoing FOLFOX chemotherapy, last dose 3 weeks ago
Most recently held
Recurrent UTIs with history of complex UTI
Macrodantin and sulfa therapy as outpatient
Abnormal UA
Leukocytosis
Conditions present prior to admission
Mild interstitial changes per CT chest 11/21/2023
Atrial fibrillation on anticoagulation
Thrombocytopenia
Positive beta-2 glycoprotein/anticardiolipin antibody
Chronic back pain
Plan/recommendations
Continuing to not improve, and he is now being transitioned to comfort care
I answered all questions this AM that the family had
Continue morphine gtt with prn morphine vs dilaudid for breakthrough SOB or pain
prn ativan for anxiety or agitation
Continue high flow nasal cannula + NRB until family is ready for pt to pass - I asked family if they want a Rabbi to come see the patient before we remove him from O2
RV-panel checked and was negative
-
Recent chemotherapy noted about 3-4 weeks ago, FOLFOX regimen
Significant infiltrates has developed on CAT scan 12/28/2023 compared to CAT scan of the chest 11/21/2023.
He stated he is on antibiotics frequently including Macrodantin for UTIs, which has been linked to drug-induced interstitial lung disease.
-
Plan:
Stop all life-sustaining medications and ABx as pt being TRX to comfort care
s/p cefepime/doxycycline-vancomycin discontinued-MRSA screening was negative.
Abnormal urinalysis noted.
cultures so far negative although urine CX (+) for VRE and MDR-Klebsiella pneumoniae
-
-
It is noted that patient has possible underlying interstitial changes. Unclear if FOLFOX regimen may have been contributed to this, currently held.
It is also unclear how often patient has been receiving Macrodantin
Last dose 3 weeks ago
Steroids were empirically started as the patient clinically deteriorated - stopped steroids given pt now being TRX to comfort care
-
DNR status.
Given that pt being TRX to comfort care now, pulmonary service will now sign off. Emotional support was provided to the family. Please call back with any questions or concerns. Thank you for allowing us to be involved in the care of this patient.
Subjective Data
-
Date of Service:
Date of Service: January 02, 2024
Chief Complaint: Pulmonary Follow Up (Pneumonia, hypoxemic respiratory failure.)
Subjective:
Seen this AM. Son and daughter at bedside. Pt being transitioned to comfort care. Morphine gtt started. Pt remains on HFNC and NRB. Still endorsing SOB ; no chest pain or anxiety.
Review of Systems
General: Other (negative unless mentioned above)
Objective Data
Data Reviewed
Vital Signs / I&O / Oxygen:
Vital Signs
Temp Pulse Resp BP Pulse Ox
97.8 F 83 23 94/74 92
01/02/24 07:50 01/02/24 06:02 01/02/24 06:02 01/02/24 06:02 01/02/24 07:30
Intake and Output
01/01/24 01/02/24 01/03/24
06:59 06:59 06:59
Intake Total 480 / 480
Output Total 950 / 950 900 / 900
Balance -470 / -470 -900 / -900
SaO2 92
Nasal Cannula flow liters per 50
minute
Physical Exam
General: Respiratory Distress (mild) and Chills (negative)
HEENT: Normocephalic and Anicteric
Cardiovascular: S1-S2 and Peripheral Edema (negative)
Respiratory: Wheeze (negative), Crackles (bilaterally) and Accessory Resp Muscle Use (mild and worse with exertion)
GI: Soft, Non Distended and Non Tender
Neurology: Awake and Alert
Skin: Warm and Dry
Labs/Micro/Reports
Lab Data
01/02/24 03:14
01/02/24 03:14
Microbiology
01/01/24 15:38 Nasalpharynx Influenza Type A (PCR) - Final
Not Detected
01/01/24 15:38 Nasalpharynx Influenza Type A (H1) (PCR) - Final
Not Detected
01/01/24 15:38 Nasalpharynx Influenza Type A (H3) (PCR) - Final
Not Detected
01/01/24 15:38 Nasalpharynx Influenza Type B (PCR) - Final
Not Detected
01/01/24 15:38 Nasalpharynx Resp Syncytial Virus Type A (PCR) - Final
Not Detected
01/01/24 15:38 Nasalpharynx Resp Syncytial Virus Type B (PCR) - Final
Not Detected
01/01/24 15:38 Nasalpharynx Adenovirus DNA (PCR) - Final
Not Detected
01/01/24 15:38 Nasalpharynx Human Metapneumovirus (PCR) - Final
Not Detected
01/01/24 15:38 Nasalpharynx Parainfluenza Virus Type 1 (PCR) - Final
Not Detected
01/01/24 15:38 Nasalpharynx Parainfluenza Virus Type 2 (PCR) - Final
Not Detected
01/01/24 15:38 Nasalpharynx Parainfluenza Virus Type 3 (PCR) - Final
Not Detected
01/01/24 15:38 Nasalpharynx Parainfluenza Virus Type 4 - Final
Not Detected
01/01/24 15:38 Nasalpharynx Rhinovirus (PCR) - Final
Not Detected
12/28/23 16:47 Blood/Venous Blood Culture - Preliminary
No Growth in 4 days- Final report to follow
12/28/23 16:47 Blood/Venous Blood Culture - Preliminary
No Growth in 4 days- Final report to follow
12/28/23 21:53 Urine Urine Culture - Final
Klebsiella pneumoniae
Enterococcus faecium - VRE
12/28/23 22:45 Sputum Respiratory Culture - Final
Usual Respiratory Shira
12/28/23 22:45 Sputum Gram Stain - Final
12/28/23 22:45 Nose MRSA Screen - Final
No Methicillin Resistant Staphylococcus aureus isolated.
[2024-01-02] MEDS: MORPHINE SULFATE 2 MG IV ×4 (11:25→14:57)
[2024-01-02] MEDS: MORPHINE 100 IV (11:31)
--- NOTE | 2024-01-02 15:50 | PTCARENOTE ---
Received this am, restless pulled off o2 desats to 70s, tachypniec 28-35- restless , panics- IV Ativan administered. Confused post administration- son states he hallucinates on it. Orders for morphine gtt reviewed- prn dose given and gtt started
step 2. 4 PRN doses have been given and increased gtt to step 3. Emotional support provided to pt and family. Family now understands poc- goals are comfort- on max HFO2 and NRB mask- will continue to titrate o2 off but he currently is extremely
uncomfortable without o2 at this time - will continue to given PRn doses Morphine per protocols- attempted to call report- waiting for return call.
[2024-01-02] MEDS: STERILE WATER FOR INJECTION IV ×2 (16:25→23:26)
[2024-01-02] MEDS: MORPHINE SULFATE 3 MG IV (16:26)
--- NOTE | 2024-01-02 16:28 | W.PN.HOSP.TC ---
Today's Communication/Plan
-
Comfort care
Assessment / Plan
Assessment / Plan
Impression:
Acute hypoxic respiratory failure.
Bilateral infiltrates with differential diagnosis pneumonia versus pneumonitis
Recurrent urinary tract infection complicated and catheter associated.
Acute urine retention requiring Castro placement 12/29
Conditions prior to admission:
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
-status post laparoscopic assisted right hemicolectomy with ileocolonic anastomosis
�Chemotherapy with FOLFOX
Hypercoagulable state with anticardiolipin antibody positive.
Chronic atrial fibrillation
Chronic interstitial lung disease baseline chronic atrial fibrillation on anticoagulation.
Chronic back pain
Plan
Acute hypoxic respiratory failure with bilateral infiltrates.
Patient remains in respiratory distress despite of aggressive treatment including antibiotics, steroids, attempt of diuresis.
Noticed with increased work of breathing, lethargy and required increased dose of IV morphine for air hunger.
In discussion with patient as well as patient's family at the bedside respecting patient wishes not to pursue any aggressive/heroic measures of life support with comfort as a priority plan is to transition to comfort care with initiation of IV
morphine drip.
Titrate oxygen as tolerates once comfort established with IV morphine infusion.
Anticipated Discharge: 24 - 48 hours
Subjective/Interval History
-
Date of Service: January 02, 2024
Objective Data
-
Vital Signs:
Vital Signs
Temp Pulse Resp BP Pulse Ox
98.5 F 83 23 94/74 92
01/02/24 11:50 01/02/24 06:02 01/02/24 06:02 01/02/24 06:02 01/02/24 07:30
I&O
01/01/24 01/02/24 01/03/24
06:59 06:59 06:59
Intake Total 480 / 480
Output Total 950 / 950 900 / 900
Balance -470 / -470 -900 / -900
Physical Exam
-
General: Well Developed and No Apparent Distress
HEENT: Normocephalic, Atraumatic and Moist Mucous Membranes
Respiratory: Clear to Auscultation
Cardiac: Regular Rhythm and S1/S2; Negative Murmur, Rub or Gallop
GI: Soft, Nontender, Nondistended and Normal Bowel Sounds; Negative Organomegaly
Rectal: Deferred by Provider
Musculoskeletal: No Clubbing, No Cyanosis and No Edema
Skin: Negative Rash
Neuro: Nonfocal/Grossly Intact
[2024-01-02] MEDS: ATIVAN 2 MG IV ×2 (16:41→20:36)
--- NOTE | 2024-01-02 17:07 | CM ---
Patient with Dx Acute hypoxic respiratory failure with bilateral infiltrates. High flow O2 with NRM. Comfort care. Per nursing; restless, confused. Receiving IV Ativan , IV MS.
Plan Comfort care.
--- NOTE | 2024-01-02 18:31 | PTCARENOTE ---
IV Ativan given pt drowsy/ sleeping comfortable- with RT transistioned HF to midflow / partial NRB mask- report given to Yaneli and transferred to 2130 safely.
[2024-01-02] MEDS: MORPHINE SULFATE 4 MG IV (20:10)
[2024-01-02] MEDS: DESENEX/MITRAZOL/ZEASORB TOPICAL (23:25)
[2024-01-03] MEDS: MORPHINE SULFATE 4 MG IV (01:29)
[2024-01-03 07:25] VITALS: BP 107/68
[2024-01-03] MEDS: DESENEX/MITRAZOL/ZEASORB TOPICAL (09:17)
[2024-01-03] MEDS: STERILE WATER FOR INJECTION IV (09:17)
[2024-01-03] MEDS: NSS (PRESERVATIVE FREE) IV (09:17)
--- NOTE | 2024-01-03 11:16 | CM ---
Addendum entered by Romina Louis RN 01/03/24 11:30:
Patient has passed.
Original Note:
Reviewed the chart notes and spoke with cloth napping supervisor Bettye. Patient was seen by hospice this morning.
Plan: Comfort care remains in place.
--- NOTE | 2024-01-03 12:31 | W.PN.DEATH ---
Pronouncement of
-
Called to see patient to pronounce.
No spontaneous heart tones or respirations noted.
Patient not responsive to verbal stimuli.
Patient is pronounced .
Time of : 11:30
Date of : 01/03/24
Cause of : Respiratory failure. Metastatic carcinoma
Family Notified: Yes
--- NOTE | 2024-01-03 12:55 | HOSPNOTE ---
Spent a long time with son and daughter and explained the process of dying. Emotional support provided. Patient was on a morphine drip and appeared comfortable the family agreed to remove the oxygen and allow the patient to just pass peacefully. I
gave family some privacy and within a few minutes the son came out of the room and stated he believes the patient just passed. Attending was notified that patient had passed. All belongings were taken home by family The son will call the
home and inform them that the patient at [facility]. No other family will be coming. Updated floor RN.
--- NOTE | 2024-01-03 13:29 | PTCARENOTE ---
pt at 1130 this morning, family at bedside. JIM notified.
== END 2024-01-03 14:10 | disposition expired | DRG 193 ==
LOC: 2 NORTH 20:12
PROVIDERS: Clinical Nurse Specialist Family Health; Emergency Medicine; Nurse Practitioner Family; Nurse Practitioner Gerontology; Student in an Organized Health Care Education/Training Program; ADMITTING PHYSICIAN Hospitalist; ATTENDING PHYSICIAN Internal Medicine; CONSULT PHYSICIAN Internal Medicine Critical Care Medicine; CONSULT PHYSICIAN Internal Medicine Hematology & Oncology; EMERGENCY PHYSICIAN Emergency Medicine; FAMILY PHYSICIAN Internal Medicine; OTHER PHYSICIAN Internal Medicine Infectious Disease
PROC: 0T9B70Z Drainage of Bladder with Drainage Device, Via Natural or Artificial Opening (ICD-10-PCS; 2023-12-30)
PROC: 5A0945A Assistance with Respiratory Ventilation, 24-96 Consecutive Hours, High Flow/Velocity Cannula (ICD-10-PCS; 2023-12-30)
DX: J18.9 Pneumonia, unspecified organism (principal); J96.01 Acute respiratory failure with hypoxia; I48.21 Permanent atrial fibrillation; N39.0 Urinary tract infection, site not specified; C18.1 Malignant neoplasm of appendix; D68.59 Other primary thrombophilia; E87.1 Hypo-osmolality and hyponatremia; C79.9 Secondary malignant neoplasm of unspecified site; Z51.5 Encounter for palliative care; E78.00 Pure hypercholesterolemia, unspecified; J84.89 Other specified interstitial pulmonary diseases; D69.59 Other secondary thrombocytopenia; T45.1X5A Adverse effect of antineoplastic and immunosuppressive drugs, initial encounter; E11.22 Type 2 diabetes mellitus with diabetic chronic kidney disease; N40.1 Benign prostatic hyperplasia with lower urinary tract symptoms; I35.1 Nonrheumatic aortic (valve) insufficiency; R33.8 Other retention of urine; K36 Other appendicitis; F41.1 Generalized anxiety disorder; I71.40 Abdominal aortic aneurysm, without rupture, unspecified; I65.29 Occlusion and stenosis of unspecified carotid artery; R31.9 Hematuria, unspecified; N18.30 Chronic kidney disease, stage 3 unspecified; G89.29 Other chronic pain; M54.9 Dorsalgia, unspecified; L89.152 Pressure ulcer of sacral region, stage 2; F32.A Depression, unspecified; M19.90 Unspecified osteoarthritis, unspecified site; B96.1 Klebsiella pneumoniae [K. pneumoniae] as the cause of diseases classified elsewhere; B95.2 Enterococcus as the cause of diseases classified elsewhere; Z66 Do not resuscitate; Z88.0 Allergy status to penicillin; Z88.1 Allergy status to other antibiotic agents; Z88.8 Allergy status to other drugs, medicaments and biological substances; Z87.442 Personal history of urinary calculi; Z92.21 Personal history of antineoplastic chemotherapy; Z79.01 Long term (current) use of anticoagulants; Z87.440 Personal history of urinary (tract) infections; Z82.49 Family history of ischemic heart disease and other diseases of the circulatory system; Z80.3 Family history of malignant neoplasm of breast; Z11.52 Encounter for screening for COVID-19
CPT/HCPCS: 88312; 36415; 36600; 71045; 71260; 80048; 80053; 81003; 81015; 82607; 82746; 82805; 82962; 83010; 83605; 83615; 83735; 83880; 84145; 85025; 85045; 87040; 87070; 87077; 87086; 87186; 87205; 87449; 87633; 87811; 87899; 88112; 93005; 94640; 96365; 96367; 97163; 97167; 99285; Q9967